=== PATIENT | female | born 1935 | race African-American/Black ===

== ENCOUNTER 2018-12-09 15:45 | Inpatient (IN) | payer OTHER, BC | END 2018-12-19 13:25 | disposition home or self-care (01) | LOC: J8W 12-10 01:53 → JER 15:45 → JERBED 22:17 ==

== ENCOUNTER 2019-01-12 17:35 | Inpatient (IN) | payer OTHER ==
[2019-01-12 18:04] VITALS: BMI 35.7
--- NOTE | 2019-01-12 18:09 | PDOC ---
History of Present Illness - General Chief Complaint: Syncope/Near Syncope Stated Complaint: COLLASPE Time Seen by Provider: 01/12/19 18:08 History Source: Patient Exam Limitations: Clinical Condition, Dementia - History of Present Illness Initial Comments: Hx is limited bc patient has dementia and is not a reliable historian. Milli Butler is an 83 yo morbidly obese F w a pmh of dementia, HTN, HLD, COPD , TIA, diverticulosis, NIDDM, intertrigo, Cholelithiasis and choledocolithiasis , and osteoarthritis, who presents to the [facility] er BIBEMS after she syncopized earlier today while she was walking up the stairs and fell down a few stairs. The patient does not remember the event but her who is with the patient in the hospital states that she passed out, and fell down a few stairs, did hit her head. The patient does not remember the fall and cannot explain how she fell , lost her balance, or if she hurt anything during the fall. The states she was pretty confused for about 30 minutes after the fall. Here in the ER she states she is not in any pain. She denies chest pain, SOB, difficulty breathing, back pain, headache, neck pain , nausea, vomiting, dysuria or urgency. PCP: Dr. Martin Allergies: iodine, shellfish, NKDA PSH: polypectomy 2011, unknown abdominal surgery (midline abdominal scar) -- pt is unsure of history, Hernia Repair, Hysterectomy, Joint Replacement (bilateral knee replacements) Social Hx: Denies smoking, drinking, or other substance usage. Past History - Past Medical History Allergies/Adverse Reactions: Allergies Allergy/AdvReac Type Severity Reaction Status Date / Time iodine [Iodine] Allergy Verified 01/12/19 18:04 shellfish Allergy Uncoded 01/12/19 18:04 Home Medications: Ambulatory Orders Acetaminophen [Tylenol .Regular Strength -] 650 mg PO Q4H PRN #45 tablet Pantoprazole Sodium [Protonix -] 40 mg PO DAILY #30 tablet.ec 12/19/18 Potassium Chloride [K-Dur -] 20 meq PO DAILY #30 tablet.er 12/19/18 Ursodiol [Actigal -] 300 mg PO BID #60 capsule 12/19/18 Asthma: Yes Cardiac Disorders: Yes COPD: No Dementia: Yes Diabetes: Yes GI Disorders: Yes (GALLBLADDER) HTN: Yes Hypercholesterolemia: Yes Thyroid Disease: Yes (hypothyroid) - Surgical History Abdominal Surgery: Yes (abd repair) Orthopedic Surgery: Yes - Immunization History Immunization Up to Date: No - Psycho Social/Smoking Cessation Hx Smoking Status: No Smoking History: Never smoked Have you smoked in the past 12 months: No Number of Cigarettes Smoked Daily: 0 Hx Alcohol Use: No Drug/Substance Use Hx: No Hx Substance Use Treatment: No Review of Systems - Review of Systems Able to Perform ROS?: Yes Comments:: CONSTITUTIONAL: Absent: fever, no chills, no fatigue EYES: Absent: visual changes ENT: Absent: ear pain, no sore throat CARDIOVASCULAR: Present: syncope Absent: chest pain, palpitations, irregular heart rate, lightheadedness, peripheral edema RESPIRATORY: Absent: cough, no SOB GI: Absent: abdominal pain, no nausea, no vomiting, no constipation, no diarrhea GENITOURINARY: Absent: dysuria, no frequency, no hematuria MUSKULOSKELETAL: Absent: back pain, no arthralgia, no myalgia SKIN: Present: rash NEURO: Absent: headache *Physical Exam - Vital Signs Last Vital Signs Temp Pulse Resp BP Pulse Ox 97.5 F L 89 18 124/82 96 01/12/19 17:45 01/12/19 17:45 01/12/19 17:45 01/12/19 17:45 01/12/19 17:45 - Physical Exam Comments: GENERAL: Morbidly obese. Demented. Cannot ambulate without help. Mild apparent distress. HEENT: Normocephalic, atraumatic. PERRL, EOM intact. CARDIOVASCULAR: Normal S1, S2. Regular rate and rhythm. PULMONARY: No evidence of respiratory distress. Lungs clear to auscultation bilaterally. No wheezing, rales or rhonchi. ABDOMEN: Soft, non-distended, non-tender. : There is diffuse intertrigo underneath the breast and around the vagina EXTREMITIES: Limited ROM in lower extremities. No gross deformities. SKIN: Warm, dry. NEUROLOGICAL: No focal neurological deficits. ED Treatment Course - LABORATORY CBC & Chemistry Diagram: 01/12/19 18:58 01/12/19 19:54 - RADIOLOGY Radiograph Interpretation: Head CT: Cranial CT without contrast Clinical information: evaluate for CVA No intracranial hemorrhage is seen. There is no definite acute infarct within the limitations of CT. In comparison to a 2012 CT exam interval development of a chronic right parietal cortical infarct is noted at the high convexity level laterally. Interval increased periventricular and subcortical white matter microvascular ischemic gliosis is seen which currently appears at least moderate. Increased generalized cerebral atrophy is seen with corresponding mild to moderate ventricular dilatation. No extra-axial fluid collection is noted. There is no obvious mass lesion on noncontrast imaging. The calvarium appears intact. Impression: No CT evidence of acute intracranial pathology. Interval development of a chronic right parietal cortical infarct is noted in comparison to a 2012 CT exam. At least moderate periventricular and subcortical chronic microvascular ischemic changes are seen which appear increased. There is increased generalized cerebral atrophy. Cervical CT: Cervical spine CT without contrast Clinical information: evaluate for fracture Multiplanar imaging was performed. No prior cervical spine imaging studies are available at this facility for direct comparison. No fracture or posttraumatic malalignment is seen. Moderate to marked multilevel degenerative disc space narrowing is seen with associated spondylosis. There is straightening of the cervical lordosis which may be chronic or acute. Moderate right C2-C3 degenerative facet arthropathy is noted. C4-C5 degenerative central canal stenosis is noted which is probably at least moderate to marked. A 0.7 x 0.4 cm sclerotic focus is seen within the right lateral aspect of the C2 vertebral body. The perivertebral soft tissues demonstrate no obvious pathology. Impression: No fracture is seen. Multilevel degenerative disc and facet joint changes are noted. C4-C5 Central canal stenosis is seen which is probably moderate to marked. A nonspecific solitary 0.7 x 0.4 cm sclerotic focus is seen within the right lateral aspect of the C2 vertebral body which may represent a bone island and probably less likely on the basis of neoplastic disease. Clinical correlation is suggested as well as correlation with 2 month follow-up CT or MRI to document stability. Alternatively correlate with a SPECT nuclear scan. Medical Decision Making - Medical Decision Making Hx is limited bc patient has dementia and is not a reliable historian. Milli Butler is an 83 yo morbidly obese F w a pmh of dementia, HTN, HLD, COPD , TIA, diverticulosis, NIDDM, intertrigo, Cholelithiasis and choledocolithiasis , and osteoarthritis, who presents to the [facility] er BIBEMS after she syncopized earlier today while she was walking up the stairs and fell down a few stairs. The patient does not remember the event but her who is with the patient in the hospital states that she passed out, and fell down a few stairs, did hit her head. The patient does not remember the fall and cannot explain how she fell , lost her balance, or if she hurt anything during the fall. The states she was pretty confused for about 30 minutes after the fall. Here in the ER she states she is not in any pain. Vital Signs Temp Pulse Resp BP Pulse Ox 97.5 F L 89 18 124/82 96 01/12/19 17:45 01/12/19 17:45 01/12/19 17:45 01/12/19 17:45 01/12/19 17:45 DDx IBNLT: ACS/KY, syncope, CVA/TIA, cervical fx, electrolyte/metabolic disturbance, UTI/Pylo, intracranial hemorrhage. Plan: Labs, Urine, EKG, CT, CXR, admit Tele for syncope and new EKG changes EKG: Sinus rhythm rate of 87, LAFB + IRBB, LAD, LVH, TWI's in I, aVL, V5, and V6 , no ST elevations or depressions. These TWI's are new since one month ago in v5 and v6. Labs: Leukocytosis with left shift, elevated Cr and BNP - The white count is potentially coming from the abdomen as patient has had cholecystitis and choledocolithiasis in the past - Will get cultures and star patient on Zosyn - Will also obtain US to evaluate gallbladder Urine: Unremarkable CXR: No focal infiltrate CT: Documented above Disposition: Admit to Telemetry for syncope and EKG changes. Discharge - Discharge Information Problems reviewed: Yes Clinical Impression/Diagnosis: Syncope and collapse, Acute electrocardiogram changes Condition: Stable - Admission Yes - Follow up/Referral - Patient Discharge Instructions - Post Discharge Activity
[2019-01-12] MEDS ORDERED: SODIUM CHLORIDE 1,000 ML IV STA (18:44)
[2019-01-12 19:14] LABS: BASO % 0.6 % (0-2.0); EOS % 0.4 % (0-4.5); HEMATOCRIT 40.6 % (32.4-45.2); MCH 29.5 pg (25.7-33.7); MEAN PLT VOLUME 7.4 fl (7.5-11.1); MONO % 3.7 % (3.8-10.2); NEUT % 85.3 % (42.8-82.8); PLATELET COUNT 510 K/MM3 (134-434); RBC 4.41 M/mm3 (3.60-5.2); RDW 14.8 % (11.6-15.6); WHITE BLOOD COUNT 17.8 K/mm3 (4.0-10.0)
[2019-01-12 19:26] LABS: INR 1.17 (0.83-1.09); PROTHROMBIN TIME (PATIENT) 13.8 SEC (9.7-13.0)
[2019-01-12 19:34] LABS: URINE APPEARANCE TURBID; URINE BILIRUBIN MODERATE (NEGATIVE); URINE COLOR DK YELLOW; URINE GLUCOSE (UA) 100 (NEGATIVE); URINE KETONE TRACE (NEGATIVE)
[2019-01-12 19:35] LABS: PH,URINE 5.5 (5.0-8.0); URINE LEUK ESTERASE SMALL (NEGATIVE); URINE NITRITE NEGATIVE (NEGATIVE); URINE PROTEIN 100 (NEGATIVE); URINE RBC 54.9 /hpf (0-4); URINE WBC 15.1 /hpf (0-5)
[2019-01-12 19:36] LABS: EPI CELLS 127.7 /HPF (0-5/HPF); HYALINE CASTS 284.17 /lpf (0-8); URINE BACTERIA 185.2 /hpf (NEGATIVE)
--- NOTE | 2019-01-12 19:47 | PDOC ---
Documentation entered by Dakotah Plata SCRIBE, acting as scribe for Lizzy Owusu DO. Lizzy Owusu DO: This documentation has been prepared by the Sherlyn velez Xhesika, SCRIBE, under my direction and personally reviewed by me in its entirety. I confirm that the documentation accurately reflects all work, treatment, procedures, and medical decision making performed by me. Attending Attestation - Resident Resident Name: Eliud Wise - ED Attending Attestation I have performed the following: I have examined & evaluated the patient, The case was reviewed & discussed with the resident, I agree w/resident's findings & plan, Exceptions are as noted - HPI HPI: 01/12/19 19:41 The patient is an 83 year old female with a significant PMH of dementia, HTN, HLD, COPD, TIA, diverticulosis, NIDDM, intertrigo, Cholelithiasis/ choledocolithiasis (s/p stent, unable to remove stone), and osteoarthritis, who presents to the emergency department BIBA for syncopal episode. Patient is a poor historian, however, at bedside providing history. notes, the patient was walking up the stairs and fell down a few stairs. The patient endorsed a brief moment of LOC, however, she did hit her head. The patient denies chest pain, shortness of breath, headache and dizziness. Denies fever, chills, cough, nausea, vomiting, diarrhea and constipation. Denies dysuria, frequency, urgency and hematuria. Allergies: iodine, shellfish Past surgical history: polypectomy 2012, unknown abdominal surgery (midline abdominal scar) -- pt is unsure of history, Hernia Repair, Hysterectomy, Joint Replacement (bilateral knee replacements) PCP: Dr. Martin - Physicial Exam PE: 01/12/19 19:42 GENERAL: Awake, alert, and fully oriented, in no acute distress HEAD: No signs of trauma EYES: PERRLA, EOMI, sclera anicteric, conjunctiva clear ENT: Auricles normal inspection, hearing grossly normal, nares patent, oropharynx clear without exudates. Moist mucosa NECK: Normal ROM, supple, no lymphadenopathy, JVD, or masses LUNGS: Breath sounds equal, clear to auscultation bilaterally. No wheezes, and no crackles HEART: Regular rate and rhythm, normal S1 and S2, no murmurs, rubs or gallops ABDOMEN: + obese. Soft, nontender, normoactive bowel sounds. No guarding, no rebound. No masses EXTREMITIES: + soft tissue lower extremity swelling. Normal range of motion, no edema. No clubbing or cyanosis. No cords, erythema, or tenderness NEUROLOGICAL: Cranial nerves II through XII grossly intact. SKIN: Warm, Dry, normal turgor, no rashes or lesions noted. - Medical Decision Making 01/12/19 19:43 I, Dr. Lizzy Owusu, DO, attest that this document has been prepared under my direction and personally reviewed by me in its entirety. I further attest, that it accurately reflects all work, treatment, procedures and medical decision -making performed by me. a/p: 83yo female with hx of dementia with a fall today - unclear if mechanical fall vs syncope -loc per -fall on the stairs - hit head -no focal findings on neuro - at baseline neuro -will send labs, ekg, head ct, cspine ct -will need obs for syncope eval 01/12/19 19:46 pt with abnl ekg - new t wave inversions laterally -will need tele obs for ekg changes and poss syncope 01/12/19 19:48 wbc 17 01/12/19 20:26 chronic cva on head ct without any new acute findings 01/12/19 21:[address] c spine with poss bone island vs neoplastic diease pt without c spine pain 01/12/19 21:15 trop neg 01/12/19 22:14 will start zosyn for poss milagros and elevated wbc resident discussed the case with [facility] - mayo beck who accepts pt to service Heart Score/ECG Review - ECG Intrepretation Comment:: 01/12/19 19:46 sinus at 87, baseline artifact, lafb, lvh, t wave inversions lateral leads v5-6, 1, avl which are new
[2019-01-12 20:43] LABS: ALBUMIN 3.3 g/dl (3.4-5.0); BILIRUBIN,TOTAL 0.4 mg/dL (0.2-1); BLOOD UREA NITROGEN 17.4 mg/dL (7-18); CALCIUM 9.2 mg/dL (8.5-10.1); CREATININE 1.5 mg/dL (0.55-1.3); N-TERMINAL BNP 594.8 pg/ml (5-450); POTASSIUM 4.2 mmol/L (3.5-5.1)
[2019-01-12] MEDS ORDERED: PIPERACILLIN/TAZOB 4.5 GM 4.5 GM in DEXTROSE 5%-WATER 100 ML IVPB ONE (22:16)
[2019-01-12] MEDS ORDERED: PIPERACILLIN/TAZOB 4.5 GM 4.5 GM/100 ML BAG IVPB ONE (22:31)
--- NOTE | 2019-01-12 22:52 | HP ---
Admitting History and Physical - Primary Care Physician PCP: Dr. Crandall - Admission Chief Complaint: S/p fall, Syncope History of Present Illness: 83 year old female with a PMH of dementia, TIA, HTN/ HLD, COPD, Diverticulosis, DM, Cholelithiasis/ choledocolithiasis (s/p stent, unable to remove stone) arrived to ED for syncopal episode and post fall. Patient is a poor historian due to dementia, at bedside states patient was walking up the stairs and fell down a few stairs. According to patient hit and her head and lost LOC for a few second. Patient denies CP/SOB, headache, dizziness. Denies fever, chills, N/V, diarrhea and constipation. No urinary symptoms. History Source: Family Member Limitations to Obtaining History: No Limitations - Past Medical History BLACKJACK PIT BOSS: Yes: CVA (old CVA by imaging), Dementia, TIA Cardiovascular: Yes: HTN, Hyperlipdemia Pulmonary: Yes: COPD Gastrointestinal: Yes: Diverticulosis, Other (sigmoid adenoma removed 06/14 Dr Lopez) Hepatobiliary: Yes: Cholelithiasis, Choledocholithiasis Musculoskeletal: Yes: Osteoarthritis Endocrine: Yes: Diabetes Mellitus - Past Surgical History Past Surgical History: Yes: Colonoscopy (06/15/[address] Lopez led to removal of a sigmoid adenoma, left colon diverticulosis was found), Hernia Repair, Hysterectomy, Joint Replacement (bilateral knee replacements) - Smoking History Smoking history: Never smoked Have you smoked in the past 12 months: No Aproximately how many cigarettes per day: 0 - Alcohol/Substance Use Hx Alcohol Use: No History of Substance Use: reports: None - Social History Usual Living Arrangement: Yes: With Significant Other ADL: Family Assistance History of Recent Travel: No Home Medications - Allergies Allergies/Adverse Reactions: Allergies Allergy/AdvReac Type Severity Reaction Status Date / Time iodine [Iodine] Allergy Verified 01/12/19 18:04 shellfish Allergy Uncoded 01/12/19 18:04 - Home Medications Home Medications: Ambulatory Orders Acetaminophen [Tylenol .Regular Strength -] 650 mg PO Q4H PRN #45 tablet Pantoprazole Sodium [Protonix -] 40 mg PO DAILY #30 tablet.ec 12/19/18 Potassium Chloride [K-Dur -] 20 meq PO DAILY #30 tablet.er 09/16/19 Ursodiol [Actigal -] 300 mg PO BID #60 capsule 12/19/18 Family Medical History Family History: Unable to Obtain Review of Systems - Review of Systems Constitutional: reports: No Symptoms, Other (s/p fall) Eyes: reports: No Symptoms HENT: reports: No Symptoms Neck: reports: No Symptoms Cardiovascular: reports: No Symptoms Respiratory: reports: No Symptoms Gastrointestinal: reports: No Symptoms Genitourinary: reports: No Symptoms Musculoskeletal: reports: No Symptoms Integumentary: reports: No Symptoms Neurological: reports: Confusion, Syncope Endocrine: reports: No Symptoms Hematology/Lymphatic: reports: No Symptoms Physical Examination Vital Signs: Vital Signs Temperature 97.5 F L 01/12/19 17:45 Pulse Rate 89 01/12/19 17:45 Respiratory Rate 18 01/12/19 17:45 Blood Pressure 124/82 01/12/19 17:45 O2 Sat by Pulse Oximetry (%) 96 01/12/19 17:45 Constitutional: Yes: No Distress, Calm, Obese Eyes: Yes: Conjunctiva Clear, EOM Intact HENT: Yes: Atraumatic, Normocephalic Neck: Yes: Supple, Trachea Midline Cardiovascular: Yes: Regular Rate and Rhythm Respiratory: Yes: Regular, CTA Bilaterally Gastrointestinal: Yes: Normal Bowel Sounds, Soft Musculoskeletal: Yes: WNL Extremities: Yes: Other (limited ROM) Edema: No Peripheral Pulses WNL: Yes Neurological: Yes: Alert, Confusion Labs: CBC, BMP 01/12/19 18:58 01/12/19 19:54 Imaging - Results Chest X-ray: Report Reviewed (no acute pathology) Cat Scan: Report Reviewed (CT head: no acuet ischemic CT neck: no fx, C4-5 central canal stenosis, nonspecific solitary 0.7 X0.4 sclerotic focus within lateral aspect of the C2 vertebral body may represent bone island vs neoplastic disease (unlikely)) Ultrasound: Report Reviewed (Abd US: no biliary tract diltation, cholethiasis without evidence of acute cholecysitis) EKG: Report Reviewed (EKG: Sinus rhythm rate of 87, LAFB + IRBB, LAD, LVH, TWI' s in I, aVL, V5, and V6, no ST elevations or depressions. These TWI's are new since one month ago in v5 and v6. Trop: negative) Other: Report Reviewed (wbc: leukocyosis) Problem List - Problems (1) Syncope and collapse Code(s): R55 - SYNCOPE AND COLLAPSE (2) Acute electrocardiogram changes Code(s): R94.31 - ABNORMAL ELECTROCARDIOGRAM [ECG] [EKG] (3) Status post fall Code(s): Z91.81 - HISTORY OF FALLING (4) Leukocytosis Code(s): D72.829 - ELEVATED WHITE BLOOD CELL COUNT, UNSPECIFIED (5) HTN (hypertension) Code(s): I10 - ESSENTIAL (PRIMARY) HYPERTENSION (6) HLD (hyperlipidemia) Code(s): E78.5 - HYPERLIPIDEMIA, UNSPECIFIED (7) COPD (chronic obstructive pulmonary disease) Code(s): J44.9 - CHRONIC OBSTRUCTIVE PULMONARY DISEASE, UNSPECIFIED (8) Choledocholithiasis Code(s): K80.50 - CALCULUS OF BILE DUCT W/O CHOLANGITIS OR CHOLECYST W/O OBST (9) Dementia Code(s): F03.90 - UNSPECIFIED DEMENTIA WITHOUT BEHAVIORAL DISTURBANCE (10) Diabetes Code(s): E11.9 - TYPE 2 DIABETES MELLITUS WITHOUT COMPLICATIONS (11) GERD (gastroesophageal reflux disease) Code(s): K21.9 - GASTRO-ESOPHAGEAL REFLUX DISEASE WITHOUT ESOPHAGITIS Assessment/Plan 83 year old female with a PMH of dementia, TIA, HTN/ HLD, COPD, Diverticulosis, DM, Cholelithiasis/ choledocolithiasis (s/p stent, unable to remove stone) arrived to ED for syncopal episode and post fall. # Syncopal episode (loc few second. hit her head) # s/p fall # Acute ECG changes EKG: Sinus rhythm rate of 87, LAFB + IRBB, LAD, LVH, TWI's in I, aVL, V5, and V6 , no ST elevations or depressions. These TWI's are new since one month ago in v5 and v6. - trop negative, no complain of cp/sob CT head: Impression: No evidence of acute intracranial pathology. chronic right parietal cortical infarct is noted CT neck: No fracture is seen. C4-C5 Central canal stenosis, A nonspecific solitary 0.7 x 0.4 cm sclerotic focus bone island vs neoplastic disease (less likely) - follow up cardiology, ? ECHO, stress stress test Unknown origin (Leukocytosis ) - wbc 17 - CXR: No focal infiltrate - Abd US: no biliary tract diltation, cholethiasis without evidence of acute cholecysitis - UA appears negative - follow up blood, urine culture - follow cbc/diff, lactate level - in ED given 1 L NS, and zosyn 4.5g x1 - continue with Zosyn 3.375 g q 8 hours - continue with IV fluids - continue with tylenol q 6 PRN - follow up ID in AM #HTN/HLD - diet controlled - monitor BP # Cholethiasis - continue with Ursodiol 300mg po BID # GERD - continue with PPI # DM - monitor FSBS AC daily - if need start novolog sliding scale - no home meds noted Visit type - Emergency Visit Emergency Visit: Yes ED Registration Date: 01/12/19 Care time: The patient presented to the Emergency Department on the above date and was hospitalized for further evaluation of their emergent condition. - New Patient This patient is new to me today: Yes Date on this admission: 01/12/19 - Critical Care Critical Care patient: No
[2019-01-12] MEDS ORDERED: ACETAMINOPHEN 325 MG TABLET (FP) PO PRN (23:35)
[2019-01-12] MEDS ORDERED: SODIUM CHLORIDE 1,000 ML IV SCH (23:45)
[2019-01-13] MEDS ORDERED: PIPERACILLIN/TAZOB 3.375 GM 3.375 GM in DEXTROSE 5%-WATER - 50 ML IVPB SCH (02:00)
[2019-01-13] MEDS ORDERED: PIPERACILLIN/TAZOB 3.375 GM 3.375 GM/50 ML BAG IVPB ONE (06:49)
[2019-01-13 07:01] LABS: HEMATOCRIT 37.2 % (32.4-45.2); HEMOGLOBIN 12.2 GM/dL (10.7-15.3); MCH 29.7 pg (25.7-33.7); MCHC 32.7 g/dl (32.0-36.0); MEAN CELL VOLUME 90.8 fl (80-96); MEAN PLT VOLUME 7.6 fl (7.5-11.1); PLATELET COUNT 497 K/MM3 (134-434); WHITE BLOOD COUNT 15.2 K/mm3 (4.0-10.0)
[2019-01-13] MEDS: PIPERACILLIN/TAZOB 3.375 GM 3.375 GM in DEXTROSE 5%-WATER - 50 ML IVPB SCH ×3 (07:01→18:16)
[2019-01-13 10:39] LABS: ALBUMIN 3.2 g/dl (3.4-5.0); BILIRUBIN,TOTAL 0.6 mg/dL (0.2-1); BLOOD UREA NITROGEN 18.9 mg/dL (7-18); CALCIUM 9.2 mg/dL (8.5-10.1); CREATININE 1.6 mg/dL (0.55-1.3); TOT PROT 6.6 g/dl (6.4-8.2)
[2019-01-13] MEDS: HEPARIN NA (PORCINE) 5,000 UNITS/ML 1ML VIAL SQ SCH ×2 (11:17→22:08)
--- NOTE | 2019-01-13 12:59 | PN ---
Progress Note, Physician Chief Complaint: seen and examined no distress - Current Medication List Current Medications: Active Medications Acetaminophen (Tylenol -) 650 mg PO Q6H PRN PRN Reason: PAIN OR FEVER Heparin Sodium (Porcine) (Heparin -) 5,000 unit SQ BID RADHA Last Admin: 01/13/19 11:17 Dose: 5,000 unit Sodium Chloride (Normal Saline -) 1,000 mls @ 50 mls/hr IV ASDIR RADHA Stop: 01/13/19 23:38 Last Admin: 01/13/19 00:23 Dose: 50 mls/hr Piperacillin Sod/Tazobactam (Sod 3.375 gm/ Dextrose) 50 mls @ 100 mls/hr IVPB Q8H-IV RADHA Stop: 01/15/19 23:59 Piperacillin Sod/Tazobactam (Sod 3.375 gm/ Dextrose) 50 mls @ 100 mls/hr IVPB Q8H-IV RADHA Stop: 01/13/19 18:29 Last Admin: 01/13/19 07:01 Dose: 100 mls/hr - Objective Vital Signs: Vital Signs Temperature 98.2 F 01/13/19 07:39 Pulse Rate 92 H 01/13/19 07:39 Respiratory Rate 18 01/13/19 07:39 Blood Pressure 119/69 01/13/19 07:39 O2 Sat by Pulse Oximetry (%) 97 01/13/19 07:39 Constitutional: Yes: Calm Cardiovascular: Yes: Regular Rate and Rhythm, S1, S2 Respiratory: Yes: CTA Bilaterally Gastrointestinal: Yes: Normal Bowel Sounds, Soft Neurological: Yes: Alert Labs: CBC, BMP 01/13/19 06:00 01/13/19 06:00 INR, PTT INR 1.17 (0.83-1.09) H 01/12/19 18:58 Problem List - Problems (1) Syncope and collapse Assessment/Plan: telemetry carotid doppler neurology cardiology PT eval echo Code(s): R55 - SYNCOPE AND COLLAPSE (2) HLD (hyperlipidemia) Assessment/Plan: statin Code(s): E78.5 - HYPERLIPIDEMIA, UNSPECIFIED (3) HTN (hypertension) Assessment/Plan: monitor BP can start hydralazine Code(s): I10 - ESSENTIAL (PRIMARY) HYPERTENSION (4) Leukocytosis Assessment/Plan: no fever wbc trending down Code(s): D72.829 - ELEVATED WHITE BLOOD CELL COUNT, UNSPECIFIED (5) CKD (chronic kidney disease) Assessment/Plan: kidney and bladder sono renal eval Code(s): N18.9 - CHRONIC KIDNEY DISEASE, UNSPECIFIED
--- NOTE | 2019-01-13 14:30 | EKG ---
Test Reason : Blood Pressure : / mmHG Vent. Rate : 087 BPM Atrial Rate : 087 BPM P-R Int : 162 ms QRS Dur : 092 ms QT Int : 348 ms P-R-T Axes : 060 -49 111 degrees QTc Int : 418 ms SINUS RHYTHM WITH FUSION COMPLEXES INCOMPLETE RIGHT BUNDLE BRANCH BLOCK LEFT ANTERIOR FASCICULAR BLOCK VOLTAGE CRITERIA FOR LEFT VENTRICULAR HYPERTROPHY T WAVE ABNORMALITY, CONSIDER LATERAL ISCHEMIA ABNORMAL ECG Confirmed by JOHNNIE GONZALEZ MD ([id number]) on 01/13/2019 2:29:50 PM Referred By: Confirmed By:JOHNNIE GONZALEZ MD
--- NOTE | 2019-01-13 14:33 | PN ---
Teaching Attending Note Name of Resident: Rosibel Rosario ATTENDING PHYSICIAN STATEMENT I saw and evaluated the patient. I reviewed the resident's note and discussed the case with the resident. I agree with the resident's findings and plan as documented. SUBJECTIVE near syncope with fall,midepigastric pain no fevers no complaints recent ercp with stent for choledocholithiasis in retained stone OBJECTIVE: Vital Signs Period Temp Pulse Resp BP Sys/Bowman Pulse Ox Last 24 Hr 97.5 F-98.8 F 77-92 16-18 119-150/69-100 96-97 cor-rrr lungs clear abd midepigastric pain to palpation ext no edema CBC, BMP 01/13/19 06:00 01/13/19 06:00 sono gallbladder stones, no duct dilatation Laboratory Tests 01/13/19 06:00 Total Bilirubin 0.6 AST 10 L ALT 14 Alkaline Phosphatase 102 ASSESSMENT AND PLAN: leukocytosis near syncope with fall s/p ERCP with stent cholelithiasis she received antibiotics in ED and this am but never had cultures done! will send cultures and resume zosyn and trend WBC count Problem List - Problems (1) Leukocytosis Code(s): D72.829 - ELEVATED WHITE BLOOD CELL COUNT, UNSPECIFIED (2) Choledocholithiasis Code(s): K80.50 - CALCULUS OF BILE DUCT W/O CHOLANGITIS OR CHOLECYST W/O OBST (3) Cholelithiasis Code(s): K80.20 - CALCULUS OF GALLBLADDER W/O CHOLECYSTITIS W/O OBSTRUCTION (4) Near syncope Code(s): R55 - SYNCOPE AND COLLAPSE (5) Fall Code(s): W19.XXXA - UNSPECIFIED FALL, INITIAL ENCOUNTER
--- NOTE | 2019-01-13 15:02 | ECHO ---
Name: SARA CHENG Exam:Adult Echocardiogram Study Date: 01/13/2019 01:29 PM Age: 83 yrs Reason For Study: EJECTION FRACTION Height: 65 in Weight: 215 lb BSA: 2.0 m2 MMode/2D Measurements & Calculations IVSd: 1.2 cm Ao root diam: 2.9 cm LVIDd: 4.5 cm LA dimension: 3.1 cm LVIDs: 3.1 cm LVPWd: 1.3 cm LVPWs: 1.4 cm EDV(Teich): 91.4 ml ESV(Teich): 39.2 ml LVOT diam: 1.8 cm Doppler Measurements & Calculations MV E max lico: 46.6 cm/sec Ao V2 max: 162.0 cm/sec MV A max lico: 132.7 cm/sec Ao max P.5 mmHg MV E/A: 0.35 Ao V2 mean: 100.7 cm/sec MV dec time: 0.08 sec Ao mean P.1 mmHg Ao V2 VTI: 28.4 cm TOBI(I,D): 1.4 cm2 TOBI(V,D): 1.6 cm2 LV V1 max P.2 mmHg SV(LVOT): 40.9 ml LV V1 mean P.2 mmHg LV V1 max: 102.0 cm/sec LV V1 mean: 70.2 cm/sec LV V1 VTI: 15.8 cm TR max lico: 253.3 cm/sec PA V2 max: 107.1 cm/sec TR max P.9 mmHg PA max P.6 mmHg Med Peak E' Lico: 3.2 cm/sec Med E/e': 14.8 Lat Peak E' Lico: 3.9 cm/sec Lat E/e': 11.8 Left Ventricle There is mild concentric left ventricular hypertrophy. Left ventricular systolic function is normal. Ejection Fraction = 55-60%. The transmitral spectral Doppler flow pattern is suggestive of impaired LV relaxat ion. Right Ventricle The right ventricle is normal in size and function. Atria Normal left and right atrial size and function. Mitral Valve The mitral valve is grossly normal. There is no mitral valve stenosis. There is mild mitral regurgita tion. Tricuspid Valve The tricuspid valve is normal in structure and function. There is mild tricuspid regurgitation. Right ventricular systolic pressure is elevated at 30-40mmHg. Aortic Valve No hemodynamically significant valvular aortic stenosis. No aortic regurgitation is present. Pulmonic Valve The pulmonic valve is not well seen, but is grossly normal. There is no pulmonic valvular stenosis. M ild pulmonic valvular regurgitation. Great Vessels The aortic root is normal size. Pericardium/Pleura There is no pericardial effusion. Interpretation Summary There is mild concentric left ventricular hypertrophy. Left ventricular systolic function is normal. Ejection Fraction = 55-60%. The transmitral spectral Doppler flow pattern is suggestive of impaired LV relaxation. The right ventricle is normal in size and function. There is mild mitral regurgitation. There is mild tricuspid regurgitation. Right ventricular systolic pressure is elevated at 30-40mmHg. There is no pericardial effusion. MD Ragsdale *Dasia 01/13/2019 03:02 PM
--- NOTE | 2019-01-13 15:11 | CONSULT ---
Consult Consult Specialty:: Infectious Disease Referred by:: ROSALIA Figueroa Reason for Consultation:: Leukocytosis w hx of cholelithiasis, prior stents - History of Present Illness Chief Complaint: Syncope/presyncope and Fall x 1 day History of Present Illness: We were asked to see pt for leukocytosis, with her recent hx of biliary duct stents 12/2018. Pt is an 83 yo F with PMHx of Dementia, DM, TIA, COPD, adrenal adenoma, diverticulosis, HLD, HTN, obesity, cholelithiasis s/p stent, OA, brought in after a fall while climbing up the stairs with her . Per her , they just came back from a social outing and were climbing the stairs to the bedroom, when at a turn, the pt appeared to be unstable,fell backwards and bump her head (not too hard) against the wall, then black out. Due to dementia, when I saw the pt, she knew her name and that she was at [facility] but could not provide any hx. She reported she had no c/o. No fevers, no burning on urination. No vomiting. She was however noted to be combative in the ED and ripped out her iv line x2. Pt reports coming from a house, and reports being able to ambulate on her own without a cane or walker. Per records at last visit she had 2 stents placed with pending stone and one duct that could not be stented for further mx at a tertiary center. She was recently discharged 12/19 on cefuroxime and flagyl after admission for abdominal pain and found to have CBD dilation CTAP w/ contrast 12/19/18. MRCP w/o contrast last visit showed choledocholithiasis, CBD- 7mm, no dilation. Abd US 01/12/19: No biliary dilation UA- nitrite neg, bacteria 185, epiith 127- CT cervical spine - c4-c5 stenosis CT head: Chronic R parietal cortical infarct . 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: CVA (old CVA by imaging), Dementia, TIA Cardio/Vascular: Yes: HTN, Hyperlipdemia Pulmonary: Yes: COPD Gastrointestinal: Yes: Diverticulosis, Other (sigmoid adenoma removed 06/14 Dr Lopez) Hepatobiliary: Yes: Cholelithiasis, Choledocholithiasis Musculoskeletal: Yes: Osteoarthritis Endocrine: Yes: Diabetes Mellitus Additional Medical History: morbid obesity - Past Surgical History Past Surgical History: Yes: Colonoscopy (06/15/[address] Lopez led to removal of a sigmoid adenoma, left colon diverticulosis was found), Hernia Repair, Hysterectomy, Joint Replacement (bilateral knee replacements) - Alcohol/Substance Use Hx Alcohol Use: No History of Substance Use: reports: None - Smoking History Smoking history: Never smoked Have you smoked in the past 12 months: No Aproximately how many cigarettes per day: 0 - Social History Usual Living Arrangement: With Spouse ADL: Family Assistance History of Recent Travel: No Home Medications - Allergies Allergies/Adverse Reactions: Allergies Allergy/AdvReac Type Severity Reaction Status Date / Time iodine [Iodine] Allergy Verified 01/12/19 18:04 shellfish Allergy Uncoded 01/12/19 18:04 - Home Medications Home Medications: Ambulatory Orders Acetaminophen [Tylenol .Regular Strength -] 650 mg PO Q4H PRN #45 tablet Pantoprazole Sodium [Protonix -] 40 mg PO DAILY #30 tablet.ec 12/19/18 Potassium Chloride [K-Dur -] 20 meq PO DAILY #30 tablet.er 12/19/18 Ursodiol [Actigal -] 300 mg PO BID #60 capsule 12/19/18 Family Medical History Family History: Unable to Obtain Review of Systems - Review of Systems Constitutional: reports: No Symptoms. denies: Chills Cardiovascular: denies: Chest Pain, Edema, Shortness of Breath Gastrointestinal: reports: Abdominal Pain (deneied abdominal pain, but complained when palpated during physical exam). denies: Diarrhea Genitourinary: denies: Burning Neurological: denies: Seizure, Tremors Physical Exam Vital Signs: Vital Signs Temperature 98.2 F 01/13/19 07:39 Pulse Rate 92 H 01/13/19 07:39 Respiratory Rate 18 01/13/19 07:39 Blood Pressure 119/69 01/13/19 07:39 O2 Sat by Pulse Oximetry (%) 97 01/13/19 07:39 Constitutional: Yes: Anxious, Obese Eyes: Yes: Conjunctiva Clear HENT: Yes: Atraumatic Neck: Yes: Supple Cardiovascular: Yes: S1, S2 Respiratory: Yes: CTA Bilaterally Gastrointestinal: Yes: Tenderness (Epigastrium) Extremities: Yes: WNL Edema: No Neurological: Yes: Alert, Oriented ...Motor Strength: WNL Labs: CBC, BMP 01/13/19 06:00 01/13/19 06:00 Imaging - Results Ultrasound: Report Reviewed Assessment/Plan Ambulatory Orders Acetaminophen [Tylenol .Regular Strength -] 650 mg PO Q4H PRN #45 tablet Pantoprazole Sodium [Protonix -] 40 mg PO DAILY #30 tablet.ec 12/19/18 Potassium Chloride [K-Dur -] 20 meq PO DAILY #30 tablet.er 12/19/18 Ursodiol [Actigal -] 300 mg PO BID #60 capsule 12/19/18 Current Medications Acetaminophen (Tylenol -) 650 mg PO Q6H PRN PRN Reason: PAIN OR FEVER Heparin Sodium (Porcine) (Heparin -) 5,000 unit SQ BID [facility] Last Admin: 01/13/19 11:17 Dose: 5,000 unit Sodium Chloride (Normal Saline -) 1,000 mls @ 50 mls/hr IV ASDIR [facility] Stop: 01/13/19 23:38 Last Admin: 01/13/19 00:23 Dose: 50 mls/hr Rosuvastatin Calcium (Crestor -) 10 mg PO HS [facility] Ursodiol (Actigal -) 300 mg PO BID [facility] Assessment/Plan: Pt is an 83 yo F with PMHx of Dementia, DM, TIA, COPD, adrenal adenoma, diverticulosis, HLD, HTN, obesity, cholelithiasis s/p stent, OA, brought in per chart after a fall down the stairs per with ID consult for leukocytosis and prior biliary stents Leukocytosis, unclear etiology Received zosyn, now on hold Will do bcx ucx Will consider restarting AB in setting of possible syncope of unknown cause after cultures are drawn D/W Dr Jeana Rosario PGY 3 Infectious Dx rotation Visit type - Emergency Visit Emergency Visit: Yes ED Registration Date: 01/12/19 Care time: The patient presented to the Emergency Department on the above date and was hospitalized for further evaluation of their emergent condition. - New Patient This patient is new to me today: Yes Date on this admission: 01/13/19 - Critical Care Critical Care patient: No ATTENDING PHYSICIAN STATEMENT I saw and evaluated the patient. I reviewed the resident's note and discussed the case with the resident. I agree with the resident's findings and plan as documented. SUBJECTIVE: OBJECTIVE: ASSESSMENT AND PLAN:
--- NOTE | 2019-01-13 15:11 | CON.CARD ---
Consult Consult Specialty:: Cardiology Reason for Consultation:: Fall - History of Present Illness Chief Complaint: Presently has no complaints History of Present Illness: This is an 83 year old female with a PMH of obesity, dementia, HTN, HLD, COPD, TIA, diverticulosis, NIDDM, choledocolithiasis, and osteoarthritis. She presents now with a fall down stairs as she was trying to walk up stairs. She does not recall the event. Her said she "passed out" and may have hit her head. Troponin negative Echocardiogram 01/13/19: Mild concentric LVH Normal LV function EF 55-60% Mild MR Mild TR EKG 01/12/19 NSR at 87 BPM with LVH,n LAD, and NSSTTW changes. 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: CVA (old CVA by imaging), Dementia, TIA Cardio/Vascular: Yes: HTN, Hyperlipdemia Pulmonary: Yes: COPD Gastrointestinal: Yes: Diverticulosis, Other (sigmoid adenoma removed 06/14 Dr Lopez) Hepatobiliary: Yes: Cholelithiasis, Choledocholithiasis Musculoskeletal: Yes: Osteoarthritis Endocrine: Yes: Diabetes Mellitus Additional Medical History: morbid obesity - Past Surgical History Past Surgical History: Yes: Colonoscopy (06/15/[address] Lopez led to removal of a sigmoid adenoma, left colon diverticulosis was found), Hernia Repair, Hysterectomy, Joint Replacement (bilateral knee replacements) - Alcohol/Substance Use Hx Alcohol Use: No History of Substance Use: reports: None - Smoking History Smoking history: Never smoked Have you smoked in the past 12 months: No Aproximately how many cigarettes per day: 0 - Social History Usual Living Arrangement: With Spouse ADL: Family Assistance History of Recent Travel: No Home Medications - Allergies Allergies/Adverse Reactions: Allergies Allergy/AdvReac Type Severity Reaction Status Date / Time iodine [Iodine] Allergy Verified 01/12/19 18:04 shellfish Allergy Uncoded 01/12/19 18:04 - Home Medications Home Medications: Ambulatory Orders Acetaminophen [Tylenol .Regular Strength -] 650 mg PO Q4H PRN #45 tablet Pantoprazole Sodium [Protonix -] 40 mg PO DAILY #30 tablet.ec 12/19/18 Potassium Chloride [K-Dur -] 20 meq PO DAILY #30 tablet.er 12/19/18 Ursodiol [Actigal -] 300 mg PO BID #60 capsule 12/19/18 Vital Signs: Vital Signs Temperature 98.2 F 01/13/19 07:39 Pulse Rate 92 H 01/13/19 07:39 Respiratory Rate 18 01/13/19 07:39 Blood Pressure 119/69 01/13/19 07:39 O2 Sat by Pulse Oximetry (%) 97 01/13/19 07:39 Constitutional: Yes: No Distress Eyes: Yes: WNL HENT: Yes: WNL Neck: Yes: WNL Respiratory: Yes: CTA Bilaterally Gastrointestinal: Yes: Soft Cardiovascular: Yes: Regular Rate and Rhythm Heart Sounds: Yes: S1, S2 Extremities: Yes: WNL Edema: No Neurological: Yes: Confusion - Other Data Labs, Other Data: CBC, BMP 01/13/19 06:00 01/13/19 06:00 INR, PTT INR 1.17 (0.83-1.09) H 01/12/19 18:58 Troponin, BNP 01/12/19 01/12/19 01/12/19 18:58 18:58 19:54 Troponin I Cancelled B-Natriuretic Peptide Cancelled 594.8 H 01/12/19 19:54 Troponin I < 0.02 B-Natriuretic Peptide Troponin, BNP 01/12/19 01/12/19 01/12/19 18:58 18:58 19:54 Troponin I Cancelled B-Natriuretic Peptide Cancelled 594.8 H 01/12/19 19:54 Troponin I < 0.02 B-Natriuretic Peptide Assessment/Plan 83 year old female with a PMH of obesity, dementia, HTN, HLD, COPD, TIA, diverticulosis, NIDDM, choledocolithiasis, and osteoarthritis. She presents now with a fall down stairs as she was trying to walk up stairs. She does not recall the event. Her said she "passed out" and may have hit her head. Troponin negative Echocardiogram 01/13/19: Mild concentric LVH Normal LV function EF 55-60% Mild MR Mild TR EKG 01/12/19 NSR at 87 BPM with LVH,n LAD, and NSSTTW changes. ? Syncope Unclear if this was a mechanical fall or true syncope Presently hemodynamically stable No other inpatient testing required Would have her follow up as an outpatient where she can wear an event recorder.
--- NOTE | 2019-01-13 17:13 | CONSULT ---
Consult - text type - Consultation Consultation Note: NEUROLOGY CONSULT GREATLY APPRECIATED: Events reviewed and discussed with RN and staff. at bedside aiding in history. Cardiology and ID consult read and appreciated. This 83 yo woman with obesity, HTN, HLD, COPD, TIA, diverticulosis, NIDDM, OA s/p B/L TKR, and "dementia." On: acetaminophen, pantoprazole, potassium,ursodiol are only home meds provided. He notes progressive gait decline over past 4 years (attributed to bad knees) requiring use of cane/walker and holding onto johnson with falls every 4-5 months. He also notes approximately 6 months of memory decline and having to "repeat things." He reports a 4 step walk up to the house they share, along with 13 steps up to the bedroom. He manages the cooking, shopping, cleaning, bills. She is able to voice her basic needs and self bathe and toilet. There are adaptive devices including side rails, shower chair, etc. Admitted after fall down FOS at home. saw her turning her body at top of stairs, falling backwards into wall. + head trauma and possible LOC. was reportedly behind her and she was not responding to his shouts or touch so he called EMS. She regained consciousness by the time EMS arrived (within 30 min). Pt unable to provide cogent history and does not recall falling. reports this is not her "normal behavior." He denies a family history of cognitive decline in her family. Head CT (reviewed): Moderate diffuse atrophy with ex vacuo ventricular dilation. Chronic, diffuse ischemic changes in subcortical and periventriular region. CT of C spine: Moderate to severe C4/C5 central canal stenosis. Moderate diffuse DJD. WBC= 17.8K; BNP 594; UA WBC= 15.1 K- on IV Zoysn AIDAN: Obese. Neck supple. No evidence of external head trauma. Neg SLR. Neg. Yahir's NEURO: [place]. No month, year or president. + Glabella, snout. CN II-XII: Normal Motor: No drift. Normal grasps and ankle dorsiflexion. Areflexic in legs. Plantars silent. No cogwheel rigidity. Coord: No FTN dystaxia Sensory: Reduced vibration/touch in feet. Impression: Head trauma with possible LOC Moderately severe B/L Cerebral Dysfunction (OMS, chronic) c/w Alzheimer's disease. 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 Suggest: Continue antibiotics and hydration Check TSH, B12, RPR Carotid duplex Repeat head CT (C-) as per protocol. MRI of Cervical spine Mobilize OO Bed to chair. PT eval and Rx for gait with walker. guest services agent/VNS/ Home safety check. Reeval for cognitive Rx when infection is cleared. Thank you very much, Jhony Bradley MD
[2019-01-13] MEDS: URSODIOL 300 MG CAPSULE PO SCH (22:08)
[2019-01-13] MEDS: ROSUVASTATIN CA 10 MG TABLET (FP) PO SCH (22:08)
[2019-01-14] MEDS: PIPERACILLIN/TAZOB 3.375 GM 3.375 GM in DEXTROSE 5%-WATER - 50 ML IVPB SCH ×3 (02:13→17:34)
[2019-01-14] MEDS ORDERED: PIPERACILLIN/TAZOBACTAM 3.375 GM VIAL IVPB ONE (08:29)
[2019-01-14] MEDS ORDERED: DEXTROSE 5%-WATER - 50 ML IVPB ONE (08:29)
[2019-01-14] MEDS: URSODIOL 300 MG CAPSULE PO SCH ×2 (09:34→22:27)
[2019-01-14] MEDS: HEPARIN NA (PORCINE) 5,000 UNITS/ML 1ML VIAL SQ SCH ×2 (09:35→22:27)
--- NOTE | 2019-01-14 15:43 | PN ---
Progress Note, Physician Chief Complaint: AWAKE SITTING IN A CHAIR DENIES CP OR SOB NO FEVERS - Current Medication List Current Medications: Active Medications Acetaminophen (Tylenol -) 650 mg PO Q6H PRN PRN Reason: PAIN OR FEVER Heparin Sodium (Porcine) (Heparin -) 5,000 unit SQ BID [facility] Last Admin: 01/14/19 09:35 Dose: 5,000 unit Piperacillin Sod/Tazobactam (Sod 3.375 gm/ Dextrose) 50 mls @ 100 mls/hr IVPB Q8H-IV RAD[facility]; Protocol Last Admin: 01/14/19 09:35 Dose: Not Given Rosuvastatin Calcium (Crestor -) 10 mg PO HS [facility] Last Admin: 01/13/19 22:08 Dose: Not Given Ursodiol (Actigal -) 300 mg PO BID [facility] Last Admin: 01/14/19 09:34 Dose: 300 mg - Objective Vital Signs: Vital Signs Temperature 98.4 F 01/14/19 14:00 Pulse Rate 86 01/14/19 14:00 Respiratory Rate 18 01/14/19 09:11 Blood Pressure 170/95 01/14/19 14:00 O2 Sat by Pulse Oximetry (%) 97 01/14/19 09:00 Constitutional: Yes: No Distress Cardiovascular: Yes: Regular Rate and Rhythm Respiratory: Yes: WNL Gastrointestinal: Yes: Soft, Abdomen, Obese Genitourinary: Yes: Incontinence Edema: Yes Edema: LLE: Trace, RLE: Trace Neurological: Yes: Confusion, Pre-Existing Deficit Psychiatric: Yes: Other Labs: CBC, BMP 01/13/19 06:00 01/13/19 06:00 INR, PTT INR 1.17 (0.83-1.09) H 01/12/19 18:58 Problem List - Problems (1) CKD (chronic kidney disease) Code(s): N18.9 - CHRONIC KIDNEY DISEASE, UNSPECIFIED (2) GERD (gastroesophageal reflux disease) Code(s): K21.9 - GASTRO-ESOPHAGEAL REFLUX DISEASE WITHOUT ESOPHAGITIS (3) HLD (hyperlipidemia) Code(s): E78.5 - HYPERLIPIDEMIA, UNSPECIFIED (4) HTN (hypertension) Code(s): I10 - ESSENTIAL (PRIMARY) HYPERTENSION (5) Leukocytosis Code(s): D72.829 - ELEVATED WHITE BLOOD CELL COUNT, UNSPECIFIED (6) Dementia Code(s): F03.90 - UNSPECIFIED DEMENTIA WITHOUT BEHAVIORAL DISTURBANCE (7) Diabetes Code(s): E11.9 - TYPE 2 DIABETES MELLITUS WITHOUT COMPLICATIONS (8) Morbid exogenous obesity Code(s): E66.01 - MORBID (SEVERE) OBESITY DUE TO EXCESS CALORIES (9) Toxic metabolic encephalopathy Code(s): G92 - TOXIC ENCEPHALOPATHY Assessment/Plan S/P ERCP WITH LEUKOCYTOSIS ON ZOSYN IV ABX CHECK CULTURES ID/GI CONSULT OOB TO CHAIR MARCUS DANIELLE FOR AGITATION
--- NOTE | 2019-01-14 19:19 | CON.NEP ---
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: CVA (old CVA by imaging), Dementia, TIA Cardio/Vascular: Yes: HTN, Hyperlipdemia Pulmonary: Yes: COPD Gastrointestinal: Yes: Diverticulosis, Other (sigmoid adenoma removed 06/14 Dr Lopez) Hepatobiliary: Yes: Cholelithiasis, Choledocholithiasis ...: No Musculoskeletal: Yes: Osteoarthritis Endocrine: Yes: Diabetes Mellitus Additional Medical History: morbid obesity - Past Surgical History Past Surgical History: Yes: Colonoscopy (06/15/[address] Lopez led to removal of a sigmoid adenoma, left colon diverticulosis was found), Hernia Repair, Hysterectomy, Joint Replacement (bilateral knee replacements) - Alcohol/Substance Use Hx Alcohol Use: No History of Substance Use: reports: None - Smoking History Smoking history: Never smoked Have you smoked in the past 12 months: No Aproximately how many cigarettes per day: 0 - Social History Usual Living Arrangement: With Spouse ADL: Family Assistance History of Recent Travel: No Home Medications - Allergies Allergies/Adverse Reactions: Allergies Allergy/AdvReac Type Severity Reaction Status Date / Time iodine [Iodine] Allergy Verified 01/12/19 18:04 shellfish Allergy Uncoded 01/12/19 18:04 - Home Medications Home Medications: Ambulatory Orders Acetaminophen [Tylenol .Regular Strength -] 650 mg PO Q4H PRN #45 tablet Pantoprazole Sodium [Protonix -] 40 mg PO DAILY #30 tablet.ec 12/19/18 Potassium Chloride [K-Dur -] 20 meq PO DAILY #30 tablet.er 12/19/18 Ursodiol [Actigal -] 300 mg PO BID #60 capsule 12/19/18 Nephrology Consult - Height Height: 5 ft 5 in - Weight Weight: 215 lb - BMI Body Mass Index (BMI): 35.7 - Lab Results CBC,BMP: CBC, BMP 01/13/19 06:00 01/13/19 06:00 Anion Gap: Anion Gap Anion Gap 9 MMOL/L (8-16) 01/13/19 06:00 - Physical Examination Vital Signs: Vital Signs Temperature 98.4 F 01/14/19 14:00 Pulse Rate 86 01/14/19 14:00 Respiratory Rate 18 01/14/19 09:11 Blood Pressure 170/95 01/14/19 14:00 O2 Sat by Pulse Oximetry (%) 97 01/14/19 09:00 Assessment/Plan jocy on chronic in setting of syncopr urine ia concentrated 1.026 admitted with syncope and head trauma being w/u 01/12/19 18:45 Ur Specific [place] 1.026 Urine WBC (Auto) 15.1 Urine RBC (Auto) 54.9 Urine Casts (Auto) 284.17 probably prerenal in [id number] of acute illness r/o infection like uti to acount for wbc and rbc in urine Plan- follow labs
[2019-01-14] MEDS ORDERED: PT OWN MED DRAWER 7, Y5N ONE (21:49)
[2019-01-14] MEDS: ROSUVASTATIN CA 10 MG TABLET (FP) PO SCH (22:27)
[2019-01-14] MEDS: OLANZapine 2.5 MG TABLET PO SCH (22:27)
[2019-01-15] MEDS ORDERED: PIPERACILLIN/TAZOBACTAM 3.375 GM VIAL IVPB ONE ×2 (02:41→16:58)
[2019-01-15] MEDS ORDERED: DEXTROSE 5%-WATER - 50 ML IVPB ONE ×2 (02:41→16:58)
[2019-01-15] MEDS: PIPERACILLIN/TAZOB 3.375 GM 3.375 GM in DEXTROSE 5%-WATER - 50 ML IVPB SCH ×3 (02:54→17:14)
[2019-01-15] MEDS ORDERED: PT OWN MED DRAWER 7, Y5N ONE (08:57)
[2019-01-15] MEDS: HEPARIN NA (PORCINE) 5,000 UNITS/ML 1ML VIAL SQ SCH ×2 (09:53→21:50)
[2019-01-15] MEDS: URSODIOL 300 MG CAPSULE PO SCH ×2 (09:53→21:50)
[2019-01-15 10:28] LABS: HEMATOCRIT 39.8 % (32.4-45.2); HEMOGLOBIN 12.9 GM/dL (10.7-15.3); MCH 29.7 pg (25.7-33.7); MCHC 32.4 g/dl (32.0-36.0); MEAN CELL VOLUME 91.8 fl (80-96); MEAN PLT VOLUME 7.5 fl (7.5-11.1); PLATELET COUNT 498 K/MM3 (134-434); RBC 4.34 M/mm3 (3.60-5.2); WHITE BLOOD COUNT 13.8 K/mm3 (4.0-10.0)
[2019-01-15 10:53] LABS: ALBUMIN 3.4 g/dl (3.4-5.0); BILIRUBIN,TOTAL 0.5 mg/dL (0.2-1); CALCIUM 9.2 mg/dL (8.5-10.1); CREATININE 1.6 mg/dL (0.55-1.3); TOT PROT 7.4 g/dl (6.4-8.2)
--- NOTE | 2019-01-15 15:19 | PN ---
Progress Note (short form) - Note Progress Note: Problems guillaume on chronic in setting of syncope admitted with syncope and head trauma probably prerenal in stdat2uv of acute illness r/o infection like uti to acount for wbc and rbc in urine Dementia, DM, TIA, COPD, adrenal adenoma, diverticulosis, HLD, HTN, obesity, cholelithiasis s/p stent, OA, Leukocytosis, unclear etiology S/P ERCP WITH STENT Current Medications Acetaminophen (Tylenol -) 650 mg PO Q6H PRN PRN Reason: PAIN OR FEVER Heparin Sodium (Porcine) (Heparin -) 5,000 unit SQ BID [facility] Last Admin: 01/15/19 09:53 Dose: 5,000 unit Piperacillin Sod/Tazobactam (Sod 3.375 gm/ Dextrose) 50 mls @ 100 mls/hr IVPB Q8H-IV [facility]; Protocol Last Admin: 01/15/19 09:54 Dose: 100 mls/hr Olanzapine (Zyprexa -) 2.5 mg PO HS [facility] Last Admin: 01/14/19 22:27 Dose: Not Given Rosuvastatin Calcium (Crestor -) 10 mg PO HS [facility] Last Admin: 01/14/19 22:27 Dose: Not Given Ursodiol (Actigal -) 300 mg PO BID [facility] Last Admin: 01/15/19 09:53 Dose: 300 mg Last Vital Signs Temp Pulse Resp BP Pulse Ox 97.8 F 105 H 18 130/90 100 01/15/19 13:00 01/15/19 13:00 01/15/19 13:00 01/15/19 13:00 01/15/19 08:28 Lungs clear heart reg Abd soft no edema CBC, BMP 01/15/19 10:12 01/15/19 10:12 IMP GUILLAUME/Prerena screat 1.6 from 1.5 leukocytosis r/o sepsis baseline s 0.9 ON ZOSYN IV ABX CHECK CULTURES ID/GI CONSULT OOB TO CHAIR ZYPREXA FOR AGITATION
--- NOTE | 2019-01-15 17:42 | PN ---
Progress Note, Physician Chief Complaint: AWAKE BASELINE DEMENTIA NO FEVER OR CHILLS NO FALLS HER IN HOSPITAL - Current Medication List Current Medications: Active Medications Acetaminophen (Tylenol -) 650 mg PO Q6H PRN PRN Reason: PAIN OR FEVER Heparin Sodium (Porcine) (Heparin -) 5,000 unit SQ BID [facility] Last Admin: 01/15/19 09:53 Dose: 5,000 unit Piperacillin Sod/Tazobactam (Sod 3.375 gm/ Dextrose) 50 mls @ 100 mls/hr IVPB Q8H-IV [facility]; Protocol Last Admin: 01/15/19 17:14 Dose: 100 mls/hr Olanzapine (Zyprexa -) 2.5 mg PO HS [facility] Last Admin: 01/14/19 22:27 Dose: Not Given Rosuvastatin Calcium (Crestor -) 10 mg PO HS [facility] Last Admin: 01/14/19 22:27 Dose: Not Given Ursodiol (Actigal -) 300 mg PO BID [facility] Last Admin: 01/15/19 09:53 Dose: 300 mg - Objective Vital Signs: Vital Signs Temperature 97.8 F 01/15/19 14:00 Pulse Rate 110 H 01/15/19 14:00 Respiratory Rate 18 01/15/19 13:00 Blood Pressure 130/101 H 01/15/19 14:00 O2 Sat by Pulse Oximetry (%) 100 01/15/19 08:28 Constitutional: Yes: No Distress Cardiovascular: Yes: Regular Rate and Rhythm Respiratory: Yes: Regular Gastrointestinal: Yes: Soft, Abdomen, Obese Genitourinary: Yes: Incontinence Musculoskeletal: Yes: Muscle Weakness Edema: Yes Edema: LLE: Trace, RLE: Trace Peripheral Pulses WNL: Yes Integumentary: Yes: WNL Wound/Incision: Yes: Clean/Dry Neurological: Yes: Confusion, Pre-Existing Deficit Psychiatric: Yes: Other Labs: CBC, BMP 01/15/19 10:12 01/15/19 10:12 INR, PTT INR 1.17 (0.83-1.09) H 01/12/19 18:58 Problem List - Problems (1) CKD (chronic kidney disease) Code(s): N18.9 - CHRONIC KIDNEY DISEASE, UNSPECIFIED (2) GERD (gastroesophageal reflux disease) Code(s): K21.9 - GASTRO-ESOPHAGEAL REFLUX DISEASE WITHOUT ESOPHAGITIS (3) HLD (hyperlipidemia) Code(s): E78.5 - HYPERLIPIDEMIA, UNSPECIFIED (4) HTN (hypertension) Code(s): I10 - ESSENTIAL (PRIMARY) HYPERTENSION (5) Leukocytosis Code(s): D72.829 - ELEVATED WHITE BLOOD CELL COUNT, UNSPECIFIED (6) Dementia Code(s): F03.90 - UNSPECIFIED DEMENTIA WITHOUT BEHAVIORAL DISTURBANCE (7) Diabetes Code(s): E11.9 - TYPE 2 DIABETES MELLITUS WITHOUT COMPLICATIONS (8) Morbid exogenous obesity Code(s): E66.01 - MORBID (SEVERE) OBESITY DUE TO EXCESS CALORIES (9) Toxic metabolic encephalopathy Code(s): G92 - TOXIC ENCEPHALOPATHY (10) S/P ERCP Code(s): Z98.890 - OTHER SPECIFIED POSTPROCEDURAL STATES (11) 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 CULTURES NEGATIVE AT THIS POINT WILL STOP ABX IN MORNING. SYNCOPE WORKUP IN PROGRESS PATIENT HAS A POSSIBLE LESION ON CT SCAN CERVICAL SPINE AT LEVEL OF C-2. MRI AND NEUROLOGY EVAL NEEDED TO REEVALUATE WHEN PATIENT IS STABLE AND ABLE TO LAY DOWN IN MRI, MAY BE DONE OUTPATIENT. PT EVAL AND POSSIBLE SNF MAY BE NEEDED FOR FALL RISKS AND CONDITIONING OF PATIENT'S GAIT. EKG IN THE MORNING R/O Q-T INTERVAL PROLONGATION ZYPREXA WAS RESTARTED YESTERDAY FOR AGITATION/CONFUSION WORENING DEMENTIA. TOXIC METABOLIC ENCEPHALOPATHY. MONITOR LABS RENAL F/U
[2019-01-15] MEDS: OLANZapine 2.5 MG TABLET PO SCH (21:50)
[2019-01-15] MEDS: ROSUVASTATIN CA 10 MG TABLET (FP) PO SCH (21:50)
[2019-01-16] MEDS: PIPERACILLIN/TAZOB 3.375 GM 3.375 GM in DEXTROSE 5%-WATER - 50 ML IVPB SCH ×2 (01:59→10:08)
[2019-01-16 06:28] LABS: HEMATOCRIT 40.1 % (32.4-45.2); HEMOGLOBIN 12.8 GM/dL (10.7-15.3); MCH 29.3 pg (25.7-33.7); MEAN CELL VOLUME 91.6 fl (80-96); MEAN PLT VOLUME 7.4 fl (7.5-11.1); PLATELET COUNT 526 K/MM3 (134-434); RBC 4.38 M/mm3 (3.60-5.2); WHITE BLOOD COUNT 12.2 K/mm3 (4.0-10.0)
[2019-01-16 06:52] LABS: BILIRUBIN,TOTAL 0.6 mg/dL (0.2-1); BLOOD UREA NITROGEN 17.3 mg/dL (7-18); CALCIUM 9.1 mg/dL (8.5-10.1); CREATININE 1.4 mg/dL (0.55-1.3); POTASSIUM 3.7 mmol/L (3.5-5.1); TOT PROT 6.9 g/dl (6.4-8.2)
[2019-01-16] MEDS ORDERED: PIPERACILLIN/TAZOBACTAM 3.375 GM VIAL IVPB ONE (09:52)
[2019-01-16] MEDS ORDERED: DEXTROSE 5%-WATER - 50 ML IVPB ONE (09:52)
[2019-01-16] MEDS: HEPARIN NA (PORCINE) 5,000 UNITS/ML 1ML VIAL SQ SCH ×3 (10:00→22:02)
[2019-01-16] MEDS: URSODIOL 300 MG CAPSULE PO SCH ×2 (10:09→22:02)
--- NOTE | 2019-01-16 11:11 | PN ---
Progress Note (short form) - Note Progress Note: Renal follow up for GUILLAUME Seen and examined at the bedside awake and alert offers no acute complaints no sob, chest pain, abd pain, fever or chills Vital Signs Temperature 97.8 F 01/16/19 10:00 Pulse Rate 112 H 01/16/19 10:00 Respiratory Rate 20 01/16/19 10:00 Blood Pressure 122/84 01/16/19 10:00 O2 Sat by Pulse Oximetry (%) 98 01/16/19 09:00 Intake & Output 01/13/19 01/14/19 01/15/19 01/16/19 23:59 23:59 23:59 23:59 Intake Total 1440 1470 480 Balance 1440 1470 480 Weight 97.522 kg 97.522 kg NAD awake and alert neck supple RRR CTA soft NT/ND trace LE edema CBC, BMP 01/16/19 05:50 01/16/19 05:50 Current Medications Acetaminophen (Tylenol -) 650 mg PO Q6H PRN PRN Reason: PAIN OR FEVER Heparin Sodium (Porcine) (Heparin -) 5,000 unit SQ BID [facility] Last Admin: 01/16/19 10:08 Dose: 5,000 unit Piperacillin Sod/Tazobactam (Sod 3.375 gm/ Dextrose) 50 mls @ 100 mls/hr IVPB Q8H-IV [facility]; Protocol Last Admin: 01/16/19 10:08 Dose: 100 mls/hr Olanzapine (Zyprexa -) 2.5 mg PO HS [facility] Last Admin: 01/15/19 21:50 Dose: 2.5 mg Rosuvastatin Calcium (Crestor -) 10 mg PO HS [facility] Last Admin: 01/15/19 21:50 Dose: 10 mg Ursodiol (Actigal -) 300 mg PO BID [facility] Last Admin: 01/16/19 10:09 Dose: 300 mg 83 year old woman with history of hypertension, hyperlipidemia , COPD, TIA, diverticulitis, dementia and CKD who presents with fall/syncope. 1. Acute Kidney injury 2. Syncope 3. Leukocytosis 4. Hyperlipidemia 5. Renal cyst 6. CKD stage 3 (baseline Cr 1.1) Renal function now improving toward baseline Cr of 1.1 Tolerating oral intake, no need for fluids at this time Renal imaging showed no obstruction Trend renal function and electrolytes Thank you Link Watson DO
--- NOTE | 2019-01-16 12:44 | EKG ---
Test Reason : Blood Pressure : / mmHG Vent. Rate : 087 BPM Atrial Rate : 087 BPM P-R Int : 150 ms QRS Dur : 088 ms QT Int : 378 ms P-R-T Axes : 055 -51 090 degrees QTc Int : 454 ms NORMAL SINUS RHYTHM LEFT ANTERIOR FASCICULAR BLOCK VOLTAGE CRITERIA FOR LEFT VENTRICULAR HYPERTROPHY ABNORMAL ECG WHEN COMPARED WITH ECG OF 12-JAN-2019 18:42, FUSION COMPLEXES ARE NO LONGER PRESENT T WAVE INVERSION LESS EVIDENT IN LATERAL LEADS Confirmed by AVRIL VALENTIN MD ([id number]) on 01/16/2019 12:44:47 PM Referred By: Confirmed By:AVRIL VALENTIN MD
--- NOTE | 2019-01-16 13:00 | PN ---
Progress Note (short form) - Note Progress Note: awake and alert oob in chair Vital Signs Period Temp Pulse Resp BP Sys/Bowman Pulse Ox Last 24 Hr 97.3 F-98.3 F 85-112 18-20 115-152/76-102 98-98 cor-rrr lungs decreased bs at bases abd soft,nt ext no edema abdominal ultrasound and renal US unrevealing CBC, BMP 01/16/19 05:50 01/16/19 05:50 a/p leukocytosis of unclear etiology no fevers day #3 zosyn will d/c antiibotics and observe jocy improving Problem List - Problems (1) Leukocytosis Code(s): D72.829 - ELEVATED WHITE BLOOD CELL COUNT, UNSPECIFIED (2) Choledocholithiasis Code(s): K80.50 - CALCULUS OF BILE DUCT W/O CHOLANGITIS OR CHOLECYST W/O OBST (3) Cholelithiasis Code(s): K80.20 - CALCULUS OF GALLBLADDER W/O CHOLECYSTITIS W/O OBSTRUCTION (4) Near syncope Code(s): R55 - SYNCOPE AND COLLAPSE (5) Fall Code(s): W19.XXXA - UNSPECIFIED FALL, INITIAL ENCOUNTER
--- NOTE | 2019-01-16 14:02 | DS ---
Physical Examination Vital Signs: Vital Signs Temperature 97.8 F 01/16/19 10:00 Pulse Rate 112 H 01/16/19 10:00 Respiratory Rate 20 01/16/19 10:00 Blood Pressure 122/84 01/16/19 10:00 O2 Sat by Pulse Oximetry (%) 98 01/16/19 09:00 Constitutional: Yes: Calm Cardiovascular: Yes: Regular Rate and Rhythm, S1, S2 Respiratory: Yes: CTA Bilaterally Gastrointestinal: Yes: Normal Bowel Sounds, Soft Neurological: Yes: Alert Labs: CBC, BMP 01/16/19 05:50 01/16/19 05:50 Discharge Summary Problems reviewed: Yes Reason For Visit: SYNCOPE AND COLLASPE, ACUTE ELECTROCARDIOGRAPHY Current Active Problems Acute electrocardiogram changes (Acute) CKD (chronic kidney disease) (Acute) Cholelithiasis (Acute) Complete lesion at C2 level of cervical spinal cord (Acute) Fall (Acute) GERD (gastroesophageal reflux disease) (Acute) HLD (hyperlipidemia) (Acute) HTN (hypertension) (Acute) Leukocytosis (Acute) Near syncope (Acute) S/P ERCP (Acute) Status post fall (Acute) Syncope and collapse (Acute) Hospital Course: 83 year old female with a PMH of dementia, TIA, HTN/ HLD, COPD, Diverticulosis, DM, Cholelithiasis/ choledocolithiasis (s/p stent, unable to remove stone) arrived to ED for syncopal episode and post fall. Patient is a poor historian due to dementia, at bedside states patient was walking up the stairs and fell down a few stairs. According to patient hit and her head and lost LOC for a few second. Patient denies CP/SOB, headache, dizziness. Denies fever, chills, N/V, diarrhea and constipation. No urinary symptoms. pAtient seen by neurology and ID ct scan of neck done possible lesion on level of C2 can be worked up as outpateint with MRI no abx per ID carotid doppler no significant stenosis Condition: Stable - Instructions Disposition: RETIREMENT FACILITY - Home Medications Comprehensive Discharge Medication List: Ambulatory Orders Acetaminophen [Tylenol .Regular Strength -] 650 mg PO Q4H PRN #45 tablet Pantoprazole Sodium [Protonix -] 40 mg PO DAILY #30 tablet.ec 12/19/18 Potassium Chloride [K-Dur -] 20 meq PO DAILY #30 tablet.er 12/19/18 Ursodiol [Actigal -] 300 mg PO BID #60 capsule 12/19/18
[2019-01-16] MEDS ORDERED: PT OWN MED DRAWER 7, Y5N ONE (21:02)
[2019-01-16] MEDS: ROSUVASTATIN CA 10 MG TABLET (FP) PO SCH (22:02)
[2019-01-16] MEDS: OLANZapine 2.5 MG TABLET PO SCH (22:02)
[2019-01-17] MEDS ORDERED: PT OWN MED DRAWER 7, Y5N ONE ×2 (09:18→21:14)
[2019-01-17 09:35] LABS: BLOOD UREA NITROGEN 16.5 mg/dL (7-18); CALCIUM 9.3 mg/dL (8.5-10.1); CREATININE 1.3 mg/dL (0.55-1.3); MAGNESIUM 2.1 mg/dL (1.8-2.4); PHOSPHOROUS 3.2 mg/dL (2.5-4.9); POTASSIUM 3.6 mmol/L (3.5-5.1)
[2019-01-17] MEDS: URSODIOL 300 MG CAPSULE PO SCH ×2 (09:38→21:21)
[2019-01-17] MEDS: HEPARIN NA (PORCINE) 5,000 UNITS/ML 1ML VIAL SQ SCH ×2 (09:40→21:21)
--- NOTE | 2019-01-17 11:27 | PN ---
Progress Note, Physician Chief Complaint: Syncope Fall History of Present Illness: NAD confused Awaiting acceptance to SNF Seen by Cardiology+ Neurology - Current Medication List Current Medications: Active Medications Acetaminophen (Tylenol -) 650 mg PO Q6H PRN PRN Reason: PAIN OR FEVER Heparin Sodium (Porcine) (Heparin -) 5,000 unit SQ BID [facility] Last Admin: 01/17/19 09:40 Dose: Not Given Olanzapine (Zyprexa -) 2.5 mg PO [facility] Last Admin: 01/16/19 22:02 Dose: Not Given Rosuvastatin Calcium (Crestor -) 10 mg PO HS [facility] Last Admin: 01/16/19 22:02 Dose: Not Given Ursodiol (Actigal -) 300 mg PO BID [facility] Last Admin: 01/17/19 09:38 Dose: 300 mg - Objective Vital Signs: Vital Signs Temperature 97.8 F 01/17/19 09:00 Pulse Rate 82 01/17/19 09:00 Respiratory Rate 20 01/17/19 09:00 Blood Pressure 152/83 01/17/19 09:00 O2 Sat by Pulse Oximetry (%) 96 01/17/19 09:00 Constitutional: Yes: Well Nourished, No Distress, Calm Cardiovascular: Yes: Regular Rate and Rhythm Respiratory: Yes: Regular Gastrointestinal: Yes: Normal Bowel Sounds, Soft Genitourinary: Yes: Incontinence Musculoskeletal: Yes: Muscle Weakness Extremities: Yes: WNL Edema: No Peripheral Pulses WNL: Yes Neurological: Yes: Alert, Confusion Psychiatric: Yes: Alert Labs: CBC, BMP 01/16/19 05:50 01/17/19 08:52 INR, PTT INR 1.17 (0.83-1.09) H 01/12/19 18:58 Problem List - Problems (1) CKD (chronic kidney disease) Assessment/Plan: -Seen by Nephrology -Cr at baseline Problems reviewed: Yes Code(s): N18.9 - CHRONIC KIDNEY DISEASE, UNSPECIFIED (2) Cholelithiasis Assessment/Plan: -Stent in place Problems reviewed: Yes Code(s): K80.20 - CALCULUS OF GALLBLADDER W/O CHOLECYSTITIS W/O OBSTRUCTION (3) 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 Problems reviewed: Yes Code(s): R55 - SYNCOPE AND COLLAPSE (5) Dementia Assessment/Plan: -Continue home meds -Fall+ safety precautions Problems reviewed: Yes Code(s): F03.90 - UNSPECIFIED DEMENTIA WITHOUT BEHAVIORAL DISTURBANCE Assessment/Plan see problem list
[2019-01-17] MEDS: ROSUVASTATIN CA 10 MG TABLET (FP) PO SCH (21:20)
[2019-01-17] MEDS: OLANZapine 2.5 MG TABLET PO SCH (21:21)
--- NOTE | 2019-01-18 10:32 | PN ---
Progress Note, Physician Chief Complaint: Syncope Fall History of Present Illness: NAD confused Denied for SNF, pt walked 100 ft Will be going home with VNS Seen by Cardiology+ Neurology - Current Medication List Current Medications: Active Medications Acetaminophen (Tylenol -) 650 mg PO Q6H PRN PRN Reason: PAIN OR FEVER Heparin Sodium (Porcine) (Heparin -) 5,000 unit SQ BID [facility] Last Admin: 01/17/19 21:21 Dose: Not Given Olanzapine (Zyprexa -) 2.5 mg PO HS [facility] Last Admin: 01/17/19 21:21 Dose: 2.5 mg Rosuvastatin Calcium (Crestor -) 10 mg PO HS COUNT [facility] Last Admin: 01/17/19 21:20 Dose: 10 mg Ursodiol (Actigal -) 300 mg PO BID COUNT [facility] Last Admin: 01/17/19 21:21 Dose: 300 mg - Objective Vital Signs: Vital Signs Temperature 97.4 F L 01/18/19 01:00 Pulse Rate 111 H 01/18/19 01:00 Respiratory Rate 20 01/18/19 01:00 Blood Pressure 147/61 01/18/19 01:00 O2 Sat by Pulse Oximetry (%) 95 01/17/19 21:00 Constitutional: Yes: Well Nourished, No Distress, Calm Cardiovascular: Yes: Regular Rate and Rhythm Respiratory: Yes: Regular Gastrointestinal: Yes: WNL, Normal Bowel Sounds, Soft, Abdomen, Obese Genitourinary: Yes: WNL Musculoskeletal: Yes: WNL Extremities: Yes: WNL Edema: No Peripheral Pulses WNL: Yes Neurological: Yes: Alert, Confusion Psychiatric: Yes: Alert Labs: CBC, BMP 01/16/19 05:50 01/17/19 08:52 INR, PTT INR 1.17 (0.83-1.09) H 01/12/19 18:58 Problem List - Problems (1) CKD (chronic kidney disease) Assessment/Plan: -Seen by Nephrology -Cr at baseline Problems reviewed: Yes Code(s): N18.9 - CHRONIC KIDNEY DISEASE, UNSPECIFIED (2) Cholelithiasis Assessment/Plan: -Stent in place Problems reviewed: Yes Code(s): K80.20 - CALCULUS OF GALLBLADDER W/O CHOLECYSTITIS W/O OBSTRUCTION (3) 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 Problems reviewed: Yes Code(s): R55 - SYNCOPE AND COLLAPSE (5) Dementia Assessment/Plan: -Continue home meds -Fall+ safety precautions Problems reviewed: Yes Code(s): F03.90 - UNSPECIFIED DEMENTIA WITHOUT BEHAVIORAL DISTURBANCE Assessment/Plan see problem list
[2019-01-18 11:17] VITALS: BP 140/84; PULSE 96; TEMP 98.7
== END 2019-01-18 11:09 | disposition home health service (06) | DRG 963 ==
LOC: JER 17:35 → JERBED 22:11 → J4W 01-13 15:27
PROVIDERS: ADMIT Family Medicine; ATTEND Family Medicine
DX: S06.899A Other specified intracranial injury with loss of consciousness of unspecified duration, initial encounter (principal); G93.41 Metabolic encephalopathy; I45.2 Bifascicular block; N39.0 Urinary tract infection, site not specified; N17.9 Acute kidney failure, unspecified; G95.89 Other specified diseases of spinal cord; E78.5 Hyperlipidemia, unspecified; R27.0 Ataxia, unspecified; F03.90 Unspecified dementia, unspecified severity, without behavioral disturbance, psychotic disturbance, mood disturbance, and anxiety; S09.90XA Unspecified injury of head, initial encounter; J44.9 Chronic obstructive pulmonary disease, unspecified; I12.9 Hypertensive chronic kidney disease with stage 1 through stage 4 chronic kidney disease, or unspecified chronic kidney disease; E11.42 Type 2 diabetes mellitus with diabetic polyneuropathy; D35.00 Benign neoplasm of unspecified adrenal gland; E11.22 Type 2 diabetes mellitus with diabetic chronic kidney disease; E66.8 Other obesity; Z68.35 Body mass index [BMI] 35.0-35.9, adult; D72.829 Elevated white blood cell count, unspecified; K57.90 Diverticulosis of intestine, part unspecified, without perforation or abscess without bleeding; N28.1 Cyst of kidney, acquired; N18.3 Chronic kidney disease, stage 3 (moderate); K80.50 Calculus of bile duct without cholangitis or cholecystitis without obstruction; M48.02 Spinal stenosis, cervical region; Y92.89 Other specified places as the place of occurrence of the external cause; W18.39XA Other fall on same level, initial encounter; Z86.73 Personal history of transient ischemic attack (TIA), and cerebral infarction without residual deficits
CPT/HCPCS: 36415; 70450-TC; 71045-TC-FY; 72125-TC; 76705-TC; 76775-TC; 76856-TC; 80048; 80053; 80061; 81003; 82140; 82607; 82962; 83036; 83690; 83721; 83735; 83880; 84100; 84443; 84484; 85025; 85027; 85610; 93005; 93010; 93306-TC; 93880-TC; 97116-GP; 97161-GP; 99285-25; J1644; J7030

== ENCOUNTER 2020-05-13 13:31 | Inpatient (IN) | payer OTHER ==
[2020-05-13] MEDS ORDERED: SODIUM CHLORIDE 1,000 ML IV SCH ×2 (13:45→18:30)
[2020-05-13 14:31] VITALS: BMI 32.5
[2020-05-13 15:24] LABS: BASO % 0.1 % (0-2.0); EOS % 0.3 % (0-4.5); HEMATOCRIT 40.1 % (32.4-45.2); HEMOGLOBIN 12.9 GM/dL (10.7-15.3); LYMPH % 9.8 % (8-40); MCH 29.2 pg (25.7-33.7); MCHC 32.1 g/dl (32.0-36.0); MEAN CELL VOLUME 90.9 fl (80-96); MEAN PLT VOLUME 7.6 fl (7.5-11.1); MONO % 5.2 % (3.8-10.2); NEUT % 84.6 % (42.8-82.8); PLATELET COUNT 468 K/MM3 (134-434); RBC 4.41 M/mm3 (3.60-5.2); RDW 14.1 % (11.6-15.6); WHITE BLOOD COUNT 18.6 K/mm3 (4.0-10.0)
[2020-05-13 15:31] LABS: INR 1.24 (0.83-1.09); PROTHROMBIN TIME (PATIENT) 15.1 SEC (9.7-13.0)
[2020-05-13 15:34] LABS: ACTIVATED PTT 27.1 SECONDS (25.2-36.5)
[2020-05-13] MEDS ORDERED: VANCOMYCIN 1 GM in D5W (PRE-DOCKED) 1,000 MG/250 ML IVPB ONE (15:45)
[2020-05-13] MEDS ORDERED: PIPERACILLIN/TAZOB 4.5 GM 4.5 GM in DEXTROSE 5%-WATER 100 ML IVPB ONE (15:45)
[2020-05-13] MEDS ORDERED: VANCOMYCIN 1 GRAM (PRE-DOCKED) 1,000 MG/250 ML BAG IVPB ONE (15:51)
[2020-05-13] MEDS ORDERED: PIPERACILLIN/TAZOB 4.5 GM 4.5 GM/100 ML BAG IVPB ONE (15:51)
[2020-05-13 15:59] LABS: EPI CELLS >36 /uL (0-25.1); HYALINE CASTS 49 /uL (0-3.1); PH,URINE 8.5 (5.0-8.0); URINE APPEARANCE TURBID; URINE BACTERIA 698 /uL (0-1359); URINE BILIRUBIN NEGATIVE (NEGATIVE); URINE COLOR DK YELLOW; URINE GLUCOSE (UA) TRACE (NEGATIVE); URINE KETONE NEGATIVE (NEGATIVE); URINE LEUK ESTERASE TRACE (NEGATIVE); URINE NITRITE NEGATIVE (NEGATIVE); URINE PROTEIN 2+ (NEGATIVE); URINE RBC 53 /uL (0-23.9); URINE WBC 18 /uL (0-25.8)
[2020-05-13 16:01] LABS: CHLORIDE 107 mmol/L (98-107); POTASSIUM 3.7 mmol/L (3.5-5.1); SODIUM 140 mmol/L (136-145)
[2020-05-13 16:02] LABS: BLOOD UREA NITROGEN 17.5 mg/dL (7-18)
[2020-05-13 16:03] LABS: ANION GAP 9 MMOL/L (8-16); CO2 25 mmol/L (21-32); GLUCOSE,RANDOM 159 mg/dL (74-106)
[2020-05-13 16:04] LABS: ALBUMIN 2.9 g/dl (3.4-5.0)
[2020-05-13 16:05] LABS: CHOLESTEROL 213 mg/dL (50-200)
[2020-05-13 16:06] LABS: SGPT/ALT 19 U/L (13-61); TRIGLYCERIDES 93 mg/dL (0-150)
[2020-05-13 16:07] LABS: CREATININE 1.4 mg/dL (0.55-1.3); LDL CHOLESTEROL (ONLY SJRH) 143 mg/dL (5-100); SGOT/AST 18 U/L (15-37)
[2020-05-13 16:08] LABS: BILIRUBIN,TOTAL 0.7 mg/dL (0.2-1); HDL CHOLESTEROL 44 mg/dL (40-60); TOT PROT 6.6 g/dl (6.4-8.2)
[2020-05-13 16:09] LABS: ALK PHOS 123 U/L (45-117)
[2020-05-13] MEDS ORDERED: ASPIRIN 325 MG TABLET PO ONE (18:28)
[2020-05-13] MEDS ORDERED: ASPIRIN 81 MG CHEWABLE TABLETS ONE (18:35)
[2020-05-13] MEDS: INSULIN SLIDING SCALE (NOVOLOG) 1 VIAL SQ SCH (22:19)
[2020-05-14] MEDS: INSULIN SLIDING SCALE (NOVOLOG) 1 VIAL SQ SCH (06:01)
[2020-05-14 08:10] LABS: BASO % 0.4 % (0-2.0); EOS % 0.2 % (0-4.5); HEMATOCRIT 38.5 % (32.4-45.2); HEMOGLOBIN 12.8 GM/dL (10.7-15.3); LYMPH % 11.4 % (8-40); MCHC 33.1 g/dl (32.0-36.0); MEAN CELL VOLUME 90.7 fl (80-96); MEAN PLT VOLUME 7.6 fl (7.5-11.1); MONO % 5.3 % (3.8-10.2); NEUT % 82.7 % (42.8-82.8); PLATELET COUNT 404 K/MM3 (134-434); RBC 4.25 M/mm3 (3.60-5.2); WHITE BLOOD COUNT 14.8 K/mm3 (4.0-10.0)
[2020-05-14 08:31] LABS: POTASSIUM 3.6 mmol/L (3.5-5.1)
[2020-05-14 08:38] LABS: ALBUMIN 2.7 g/dl (3.4-5.0); BLOOD UREA NITROGEN 16.8 mg/dL (7-18); MAGNESIUM 1.9 mg/dL (1.8-2.4)
[2020-05-14 08:40] LABS: CALCIUM 8.5 mg/dL (8.5-10.1)
[2020-05-14 08:41] LABS: CREATININE 1.4 mg/dL (0.55-1.3); PHOSPHOROUS 3.3 mg/dL (2.5-4.9)
[2020-05-14 08:43] LABS: BILIRUBIN,TOTAL 0.7 mg/dL (0.2-1); TOT PROT 6.2 g/dl (6.4-8.2)
[2020-05-14] MEDS ORDERED: cefTRIAXone SODIUM 1 GM VIAL ONE (08:58)
[2020-05-14] MEDS ORDERED: DEXTROSE 5%-WATER - 50 ML IVPB ONE (08:59)
[2020-05-14] MEDS: CEFTRIAXONE 1 GM in DEXTROSE 5%-WATER - 50 ML IVPB SCH (09:35)
[2020-05-14] MEDS: ASPIRIN 81 MG CHEWABLE TABLETS PO SCH (09:35)
[2020-05-14] MEDS ORDERED: HEPARIN NA (PORCINE) 5,000 UNITS/ML 1ML VIAL SQ SCH (10:00)
[2020-05-14] MEDS: VALSARTAN 80 MG TABLET PO SCH (11:36)
[2020-05-14] MEDS: DONEPEZIL HCL 5 MG TABLET (FP) PO SCH (14:08)
[2020-05-14] MEDS: HEPARIN NA (PORCINE) 5,000 UNITS/ML 1ML VIAL SQ SCH (21:16)
[2020-05-14] MEDS ORDERED: ATORVASTATIN CA 10 MG TABLET (FP) PO SCH (22:00)
[2020-05-15] MEDS ORDERED: SODIUM CHLORIDE 1,000 ML IV SCH (01:30)
[2020-05-15 08:19] LABS: BASO % 0.9 % (0-2.0); EOS % 4.5 % (0-4.5); HEMATOCRIT 34.3 % (32.4-45.2); HEMOGLOBIN 11.4 GM/dL (10.7-15.3); LYMPH % 28.6 % (8-40); MCH 30.2 pg (25.7-33.7); MCHC 33.2 g/dl (32.0-36.0); MEAN CELL VOLUME 91.1 fl (80-96); PLATELET COUNT 363 K/MM3 (134-434); RBC 3.76 M/mm3 (3.60-5.2)
[2020-05-15 08:57] LABS: ALBUMIN 2.4 g/dl (3.4-5.0); BLOOD UREA NITROGEN 13.1 mg/dL (7-18); CALCIUM 8.4 mg/dL (8.5-10.1)
[2020-05-15 09:00] LABS: CREATININE 1.2 mg/dL (0.55-1.3)
[2020-05-15 09:02] LABS: BILIRUBIN,TOTAL 0.7 mg/dL (0.2-1); TOT PROT 5.6 g/dl (6.4-8.2)
[2020-05-15] MEDS ORDERED: cefTRIAXone SODIUM 1 GM VIAL ONE (09:21)
[2020-05-15] MEDS ORDERED: DEXTROSE 5%-WATER - 50 ML IVPB ONE (09:21)
[2020-05-15] MEDS: DONEPEZIL HCL 5 MG TABLET (FP) PO SCH (09:44)
[2020-05-15] MEDS: VALSARTAN 80 MG TABLET PO SCH (09:44)
[2020-05-15] MEDS: ASPIRIN 81 MG CHEWABLE TABLETS PO SCH (09:45)
[2020-05-15] MEDS: HEPARIN NA (PORCINE) 5,000 UNITS/ML 1ML VIAL SQ SCH (09:45)
[2020-05-15] MEDS: CEFTRIAXONE 1 GM in DEXTROSE 5%-WATER - 50 ML IVPB SCH (09:45)
[2020-05-15 14:21] VITALS: PULSE 73
[2020-05-15 18:25] VITALS: BP 148/76; TEMP 98.1
== END 2020-05-15 18:32 | disposition home or self-care (01) | DRG 948 ==
LOC: JER 13:31 → JERBED 18:38 → J4S 05-14 00:19
PROVIDERS: ADMIT Internal Medicine; ATTEND Family Medicine
DX: R41.82 Altered mental status, unspecified (principal); N17.9 Acute kidney failure, unspecified; J44.9 Chronic obstructive pulmonary disease, unspecified; E78.5 Hyperlipidemia, unspecified; G30.9 Alzheimer's disease, unspecified; F02.80 Dementia in other diseases classified elsewhere, unspecified severity, without behavioral disturbance, psychotic disturbance, mood disturbance, and anxiety; I12.9 Hypertensive chronic kidney disease with stage 1 through stage 4 chronic kidney disease, or unspecified chronic kidney disease; E11.22 Type 2 diabetes mellitus with diabetic chronic kidney disease; N18.30 Chronic kidney disease, stage 3 unspecified; I95.9 Hypotension, unspecified
CPT/HCPCS: 36415; 70450-TC; 70551-TC; 71045-TC-FY; 76775-TC; 80053; 80061; 81003; 82550; 82962; 83036; 83721; 83735; 84100; 84484; 85025; 85610; 85730; 86850; 86900; 86901; 87040; 87086; 93005; 93010; 97116-GP; 97161-GP; 99285-25; C9803; J1644; U0003

== ENCOUNTER 2020-06-13 13:15 | Inpatient (IN) | payer OTHER ==
[2020-06-13 13:51] VITALS: BMI 31.0
[2020-06-13 14:41] LABS: BASO % 0.5 % (0-2.0); EOS % 0.1 % (0-4.5); HEMOGLOBIN 13.2 GM/dL (10.7-15.3); LYMPH % 11.3 % (8-40); MCH 29.8 pg (25.7-33.7); MEAN CELL VOLUME 90.3 fl (80-96); MEAN PLT VOLUME 7.6 fl (7.5-11.1); NEUT % 82.1 % (42.8-82.8); PLATELET COUNT 479 K/MM3 (134-434); RBC 4.43 M/mm3 (3.60-5.2); RDW 14.4 % (11.6-15.6)
[2020-06-13] MEDS ORDERED: FAMOTIDINE 20 MG/50 ML IVPB 20 MG/50 ML MG IVPB ONE (14:52)
[2020-06-13] MEDS ORDERED: MAG HYDROX/AL HYDROX/SIMETH 30 ML UNIT-DOSE CUP PO ONE (14:52)
[2020-06-13 15:00] LABS: POTASSIUM 4.4 mmol/L (3.5-5.1)
[2020-06-13 15:02] LABS: ALBUMIN 2.7 g/dl (3.4-5.0); BLOOD UREA NITROGEN 18.9 mg/dL (7-18); CALCIUM 9.5 mg/dL (8.5-10.1)
[2020-06-13 15:05] LABS: CREATININE 1.2 mg/dL (0.55-1.3)
[2020-06-13 15:07] LABS: BILIRUBIN,TOTAL 0.8 mg/dL (0.2-1); TOT PROT 6.8 g/dl (6.4-8.2)
[2020-06-13 17:10] LABS: EPI CELLS >36 /uL (0-25.1); HYALINE CASTS 4 /uL (0-3.1); PH,URINE 5.5 (5.0-8.0); URINE APPEARANCE CLOUDY; URINE BACTERIA 2370 /uL (0-1359); URINE BILIRUBIN 2+ (NEGATIVE); URINE COLOR DK YELLOW; URINE GLUCOSE (UA) NEGATIVE (NEGATIVE); URINE KETONE 1+ (NEGATIVE); URINE LEUK ESTERASE NEGATIVE (NEGATIVE); URINE NITRITE POSITIVE (NEGATIVE); URINE PROTEIN 1+ (NEGATIVE); URINE RBC 16 /uL (0-23.9); URINE WBC 23 /uL (0-25.8)
[2020-06-13] MEDS ORDERED: CEFTRIAXONE 1 GM in DEXTROSE 5%-WATER - 50 ML IVPB ONE (17:19)
[2020-06-13] MEDS ORDERED: CEFTRIAXONE 1 GM/50 ML BAG ONE (17:24)
[2020-06-13] MEDS ORDERED: SODIUM CHLORIDE 1,000 ML IV SCH (22:45)
[2020-06-14] MEDS ORDERED: cefTRIAXone SODIUM 1 GM VIAL ONE (09:32)
[2020-06-14] MEDS ORDERED: DEXTROSE 5%-WATER - 50 ML IVPB ONE (09:32)
[2020-06-14] MEDS ORDERED: CEFTRIAXONE 1 GM in DEXTROSE 5%-WATER - 50 ML IVPB SCH (10:00)
[2020-06-14 10:22] LABS: BASO % 0.4 % (0-2.0); EOS % 1.5 % (0-4.5); HEMATOCRIT 35.7 % (32.4-45.2); HEMOGLOBIN 11.8 GM/dL (10.7-15.3); LYMPH % 20.7 % (8-40); MCH 29.7 pg (25.7-33.7); MEAN PLT VOLUME 7.6 fl (7.5-11.1); MONO % 7.2 % (3.8-10.2); NEUT % 70.2 % (42.8-82.8); PLATELET COUNT 443 K/MM3 (134-434); RBC 3.97 M/mm3 (3.60-5.2); RDW 14.3 % (11.6-15.6); WHITE BLOOD COUNT 10.1 K/mm3 (4.0-10.0)
[2020-06-14 10:31] LABS: POTASSIUM 3.8 mmol/L (3.5-5.1)
[2020-06-14 10:35] LABS: CALCIUM 8.6 mg/dL (8.5-10.1)
[2020-06-14 10:36] LABS: BLOOD UREA NITROGEN 20.2 mg/dL (7-18); MAGNESIUM 2.2 mg/dL (1.8-2.4)
[2020-06-14 10:39] LABS: BILIRUBIN,TOTAL 0.7 mg/dL (0.2-1); TOT PROT 5.7 g/dl (6.4-8.2)
[2020-06-14] MEDS: HEPARIN NA (PORCINE) 5,000 UNITS/ML 1ML VIAL SQ SCH ×2 (10:54→21:21)
[2020-06-14 10:57] LABS: ALBUMIN 2.1 g/dl (3.4-5.0)
[2020-06-14] MEDS: ASPIRIN 81 MG CHEWABLE TABLETS PO SCH (11:07)
[2020-06-14] MEDS: VALSARTAN 80 MG TABLET PO SCH (11:07)
[2020-06-14] MEDS: D5-1/2NS+20 MEQ KCL - 20 MEQ/1,000 ML INFUS.BAG IV SCH (13:36)
[2020-06-14] MEDS: DONEPEZIL HCL 5 MG TABLET (FP) PO SCH (21:21)
[2020-06-14] MEDS: ATORVASTATIN CA 10 MG TABLET (FP) PO SCH (21:21)
[2020-06-15] MEDS: D5-1/2NS+20 MEQ KCL - 20 MEQ/1,000 ML INFUS.BAG IV SCH (02:50)
[2020-06-15] MEDS: ASPIRIN 81 MG CHEWABLE TABLETS PO SCH (10:28)
[2020-06-15] MEDS: HEPARIN NA (PORCINE) 5,000 UNITS/ML 1ML VIAL SQ SCH ×2 (10:28→22:56)
[2020-06-15] MEDS: VALSARTAN 80 MG TABLET PO SCH (10:28)
[2020-06-15] MEDS: DONEPEZIL HCL 5 MG TABLET (FP) PO SCH (22:56)
[2020-06-15] MEDS: ATORVASTATIN CA 10 MG TABLET (FP) PO SCH (22:56)
[2020-06-16] MEDS: D5-1/2NS+20 MEQ KCL - 20 MEQ/1,000 ML INFUS.BAG IV SCH (06:46)
[2020-06-16] MEDS: VALSARTAN 80 MG TABLET PO SCH (10:03)
[2020-06-16] MEDS: HEPARIN NA (PORCINE) 5,000 UNITS/ML 1ML VIAL SQ SCH ×2 (10:03→21:38)
[2020-06-16] MEDS: ASPIRIN 81 MG CHEWABLE TABLETS PO SCH (10:03)
[2020-06-16] MEDS: DONEPEZIL HCL 5 MG TABLET (FP) PO SCH (21:38)
[2020-06-16] MEDS: ATORVASTATIN CA 10 MG TABLET (FP) PO SCH (21:38)
[2020-06-17] MEDS: HEPARIN NA (PORCINE) 5,000 UNITS/ML 1ML VIAL SQ SCH ×2 (09:50→21:44)
[2020-06-17] MEDS: ASPIRIN 81 MG CHEWABLE TABLETS PO SCH ×2 (09:50→11:46)
[2020-06-17] MEDS: VALSARTAN 80 MG TABLET PO SCH ×2 (09:50→11:46)
[2020-06-17] MEDS: ATORVASTATIN CA 10 MG TABLET (FP) PO SCH (21:44)
[2020-06-17] MEDS: DONEPEZIL HCL 5 MG TABLET (FP) PO SCH (21:44)
[2020-06-18] MEDS: HEPARIN NA (PORCINE) 5,000 UNITS/ML 1ML VIAL SQ SCH ×2 (11:09→22:27)
[2020-06-18] MEDS: ASPIRIN 81 MG CHEWABLE TABLETS PO SCH (11:49)
[2020-06-18] MEDS: METOPROLOL TARTRATE 25 MG TABLET (FP) PO SCH ×2 (11:50→22:27)
[2020-06-18] MEDS: VALSARTAN 80 MG TABLET PO SCH (11:50)
[2020-06-18] MEDS: ATORVASTATIN CA 10 MG TABLET (FP) PO SCH (22:27)
[2020-06-18] MEDS: DONEPEZIL HCL 5 MG TABLET (FP) PO SCH (22:27)
[2020-06-19] MEDS: HEPARIN NA (PORCINE) 5,000 UNITS/ML 1ML VIAL SQ SCH ×2 (10:54→22:33)
[2020-06-19] MEDS: ASPIRIN 81 MG CHEWABLE TABLETS PO SCH (11:06)
[2020-06-19] MEDS: VALSARTAN 80 MG TABLET PO SCH (11:06)
[2020-06-19] MEDS: METOPROLOL TARTRATE 25 MG TABLET (FP) PO SCH ×2 (11:06→22:33)
[2020-06-19] MEDS: DONEPEZIL HCL 5 MG TABLET (FP) PO SCH (22:33)
[2020-06-19] MEDS: ATORVASTATIN CA 10 MG TABLET (FP) PO SCH (22:33)
[2020-06-20] MEDS: ASPIRIN 81 MG CHEWABLE TABLETS PO SCH (09:30)
[2020-06-20] MEDS: VALSARTAN 80 MG TABLET PO SCH (09:30)
[2020-06-20] MEDS: METOPROLOL TARTRATE 25 MG TABLET (FP) PO SCH ×2 (09:31→21:05)
[2020-06-20] MEDS: HEPARIN NA (PORCINE) 5,000 UNITS/ML 1ML VIAL SQ SCH ×2 (09:31→21:06)
[2020-06-20] MEDS: DONEPEZIL HCL 5 MG TABLET (FP) PO SCH (21:04)
[2020-06-20] MEDS: ATORVASTATIN CA 10 MG TABLET (FP) PO SCH (21:05)
[2020-06-21] MEDS: ASPIRIN 81 MG CHEWABLE TABLETS PO SCH (10:52)
[2020-06-21] MEDS: VALSARTAN 80 MG TABLET PO SCH (10:52)
[2020-06-21] MEDS: METOPROLOL TARTRATE 25 MG TABLET (FP) PO SCH ×2 (10:52→21:47)
[2020-06-21 16:40] VITALS: BP 149/77; PULSE 76; TEMP 98.1
[2020-06-21] MEDS: DONEPEZIL HCL 5 MG TABLET (FP) PO SCH (21:47)
[2020-06-21] MEDS: ATORVASTATIN CA 10 MG TABLET (FP) PO SCH (21:47)
== END 2020-06-21 23:18 | DRG 56 ==
LOC: JER 13:15 → JERBED 16:40 → J4S 20:06
PROVIDERS: ADMIT Family Medicine; ATTEND Family Medicine
DX: G30.9 Alzheimer's disease, unspecified (principal); I63.9 Cerebral infarction, unspecified; F02.81 Dementia in other diseases classified elsewhere, unspecified severity, with behavioral disturbance; E11.9 Type 2 diabetes mellitus without complications; I10 Essential (primary) hypertension; E78.5 Hyperlipidemia, unspecified; J44.9 Chronic obstructive pulmonary disease, unspecified; Z86.73 Personal history of transient ischemic attack (TIA), and cerebral infarction without residual deficits; E03.9 Hypothyroidism, unspecified; E66.9 Obesity, unspecified; E66.01 Morbid (severe) obesity due to excess calories; B35.1 Tinea unguium; L60.2 Onychogryphosis; Z68.31 Body mass index [BMI] 31.0-31.9, adult
CPT/HCPCS: 36415; 70450-TC; 71045-TC-FY; 72125-TC; 80053; 80061; 81003; 82550; 82728; 83036; 83615; 83721; 83735; 84443; 84484; 85025; 86780; 87086; 87804; 93005; 93010; 93306-TC; 93971-LT; 97116-GP; 97161-GP; 99285-25; C9803; J1644; U0003